=== PATIENT | male | born 1955 | race Caucasian/White ===

== ENCOUNTER 2018-02-21 19:44 | Observation (INO) | payer OTHER ==
--- OUTSIDE RECORDS SUMMARY | 2018-02-21 19:55 | XMS REPORT ---
:1955 External Reference #:[id number] Author Organization [employer] Address [address] [place] [address] [place] [address] Phone [phone] Care Team Providers Name Role Phone Nancy Bedoya MD Primary Care Physician Unavailable Payers Type Date Identification Numbers Payment Provider Subscriber Commercial Policy Number: [id number] [employer] Regine Sapp PayID: [id number] [address] [place] [address] Problems Date Description Provider Status Onset: 08/11/2010 Heart valve replacement Nancy Bedoya M.D. Active Onset: 08/11/2010 Benign essential hypertension Nancy Bedoya M.D. Active Onset: 08/11/2010 Hyperlipidemia Nancy Bedoya M.D. Active Onset: 09/07/2012 Gastroesophageal reflux disease Nancy Bedoya M.D. Active Onset: 11/14/2013 Aortic valve disorder Jyoti Beckford M.D. Active Onset: 11/14/2013 Peripheral vascular disease Jyoti Beckford M.D. Active Onset: 11/14/2013 Thoracic Aortic Ectasia Jyoti Beckford M.D. Active Onset: 04/29/2015 Essential hypertension Jyoti Beckford M.D. Active Onset: 04/29/2015 Aneurysm of thoracic aorta Jyoti Beckford M.D. Active Onset: 04/20/2017 Transient global amnesia Jyoti Beckford M.D. 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 ETOH Use Drinks 1 Alcoholic Beverage Per Day Recreational Drug Use Denies Drug Use Smoking Patient is a former smoker Daily Caffeine Comsumes on average 1 cup of decaff coffee per day Exercise Type/Frequency Exercises regularly Allergies, Adverse Reactions, Alerts Date Description Reaction Status Severity Comments 03/18/2010 No Known Drug Allergy active Medications Medication Date Status Form Strength Qnty SIG Indications Ordering Provider Diltiazem HCL ER 01/11 Active Caps ER 120mg 90cap 1 cap by 24HR s mouth Shakeel, every day M.D. Hydrochlorothiazid 04/22 Active Tablets 25mg 45tab Take s One-Half Cotton, Tablet By M.DIzabela Mouth Every Other Day Alternatin g With Spironolac tone Omeprazole 03/19 Active Capsules 40mg 90cap Take [address] ralph Capsule By Varsilvia, N.P. Mouth Daily Lisinopril Active Tablets 20mg 90tab 1 by mouth s daily Shakeel, MJacob Lovaza Active Capsules 1gm 360ca take 2 ps capsules Cotton, twice a M.D. day (pt takes 2 every day) Vitamin B-12 Active Tablets 500mcg 1 by mouth Unknown every day (pt not taking 04/20/17) Aspirin Active Chewtabs 81mg 1 by mouth every day Spironolactone Active Tablets 25mg 45tab Take s One-Half Cotton, Tablet By M.D. Mouth Every Other Day Tizanidine HCL 12/22 Hx Capsules 2mg 30cap 1-2 tablet M54.31 s every 8 Cotton, - hours as M.D. 04/08 Hydrocodone-Acetam 12/22 Hx Tablets 5-325mg 30tab 1 by mouth M54.31 inophen s three Cotton, - times a M.D. 04/08 day as needed Prednisone 12/22 Hx Tablets 10mg 20tab 4 tabs by M54.31 Nancy s mouth days Cotton, - 1-2; 3 M.D. 04/08 tabs by mouth on days 3-4, 2 tabs by mouth on days 5-6, 1 tab by mouth days 7-8 Valacyclovir HCL 10/14 Hx Tablets 500mg 42tab 2 tablets B02.9 Douglas s by mouth Татьяна [employer]ING OFFIC[employer] - three 10/20 times a day for 7 days Amoxicillin 11/13 Hx Capsules 500mg 20cap one tablet 461.8 Douglas s two times EPI Vaz - a day for 11/23 Tamiflu 11/01 Hx Capsules 75mg 10cap 1 by mouth 465.9 s twice a Varn, N.P. - day x 5 Guaifenesin-Codein 11/01 Hx Solution 100-10mg/ 120cc 1 - 2 465.9 5ML teaspoon Varn, N.P. - every 4 01/14 hours needed cough Cyclobenzaprine 03/12 Hx Tablets 10mg 30tab 1 tablet 724.2 Nancy HCL s PO QHS, Aureliano, - you can M.D. 03/16 also this every 8 hours in the daytime Hydrocodone/Acetam 03/12 Hx Tablets 5-500mg 40tab 1 every 4 724.2 Nancy inophen s hours as Aureliano, - needed for M.D. 03/27 pain Diltiazem CD 01/03 Hx Caps ER 120mg 90cap 1 cap by Jyoti 24HR s mouth [place], - every day M.D. 01/11 Dilt-XR 12/06 Hx Caps ER 120mg 30cap One po Jyoti 24HR s daily [place], - M.D. 01/03 Dilt-XR 11/07 Hx Caps ER 180mg 90cap 1 tab by Jyoti 24HR s mouth [place], - every day M.D. 12/06 Keflex 08/05 Hx Capsules 500mg 21cap one by s mouth 3 Cotton, - times M.D. 08/12 daily 7 days Amoxicillin 05/11 Hx Capsules 500mg 4caps 4 tablets Nancy one hour Cotton, - prior to M.D. 05/28 Amoxil Hx Capsules 500mg 4caps 4 tablets Nancy /0000 one hour Cotton, - prior to M.D. 05/11 procedure Prilosec Hx Capsules 20mg 60cap 1 by mouth 530.81 Hao, DR loree Ricardo MD - daily 03/19 HCTZ Hx 25mg. 45uni /2 Tablet Nancy /0000 ts By Mouth Cotton, - Daily M.D. 05/28 Ramipril Hx Capsules 10mg 90cap 1 by mouth Nancy / s daily Cotton, - M.D. 08/05 Lisinopril Hx Tablets 40mg 90tab 1 by mouth Unknown /0000 s once daily - 05/28 Diltiazem HCL ER Hx Caps ER 240mg 90cap Take 1 Nancy /0000 24HR s Capsule Cotton, - Daily M.D. 03/12 Tizanidine HCL Hx Tablets 2 tab Unknown /0000 every - night prn 09/10 Prednisone Hx Tablets 10mg 30tab 5 tabs PO Nancy /0000 s on day 1, Aureliano, - then M.D. 03/27 reduce 1 tablet daily until gone Naproxen Hx Tablets 500mg 60tab 1 po bid Unknown /0000 s prn - 09/10 Ibuprofen 200 Hx Tablets 200mg 400-600mg Unknown /0000 every 6 - hours as 12/28 needed for /2018 pain. Medications Administered in Office Medication Date Status Form Strength Qnty SIG Indications Ordering Provider Sharynomedpatricia Administered Injection Dirdarrick Santoyo, 40MG 018 M.D. Immunizations CPT Code Status Date Vaccine Lot # [id number] Given 09/07/2012 Tdap - Tetanus/Diptheria/Acellular Pertussis [id number] Given 08/11/2009 Influenza Virus Vaccine, Pandemic Formulation [id number] Given 08/11/2009 Administration Swine Flu Shot [id number] Given 05/05/2009 Influenza Virus 3Yrs & Over [id number] Given 05/15/2007 Influenza Virus 3Yrs & Over 94928 Given 06/15/2006 Influenza Virus 3Yrs & Over Vital Signs Date Vital Result Comment 01/23/2018 Height 68 inches 5'8" Weight 194.00 lb Heart Rate 80 /min BP Systolic Sitting 122 mmHg BP Diastolic Sitting 76 mmHg Respiratory Rate 16 /min Pain Level 3 BMI (Body Mass Index) 29.5 kg/m2 12/28/2017 Height 68 inches 5'8" Weight 194.00 lb Heart Rate 66 /min BP Systolic Sitting 128 mmHg BP Diastolic Sitting 78 mmHg Respiratory Rate 16 /min Body Temperature 97.8 F Pain Level 4 BMI (Body Mass Index) 29.5 kg/m2 12/14/2017 Height 68 inches 5'8" Weight 194.00 lb BP Systolic 118 mmHg BP Diastolic 70 mmHg Respiratory Rate 18 /min Body Temperature 98.1 F Pain Level 5 BMI (Body Mass Index) 29.5 kg/m2 07/22/2017 Height 68 inches 5'8" Weight 194.00 lb Heart Rate 78 /min Respiratory Rate 16 /min Body Temperature 97.7 F Pain Level 0 BMI (Body Mass Index) 29.5 kg/m2 05/26/2017 Height 68 inches 5'8" Weight 194.00 lb BP Systolic 120 mmHg BP Diastolic 70 mmHg Respiratory Rate 18 /min Pain Level 0 BMI (Body Mass Index) 29.5 kg/m2 05/12/2017 Height 69 inches 5'9" Weight 194.50 lb Heart Rate 90 /min BP Systolic 120 mmHg BP Diastolic 76 mmHg Body Temperature 97.2 F O2 % BldC Oximetry 98 % BMI (Body Mass Index) 28.7 kg/m2 05/02/2017 Weight 196.00 lb Heart Rate 77 /min BP Systolic 120 mmHg BP Diastolic 78 mmHg Body Temperature 97.4 F O2 % BldC Oximetry 98 % 04/20/2017 Height 68 inches 5'8" Weight 195.00 lb with shoes Heart Rate 74 /min BP Systolic Sitting 124 mmHg Lue reg cuff BP Diastolic Sitting 86 mmHg Lue reg cuff BP Systolic Standing 120 mmHg Lue reg cuff BP Diastolic Standing 72 mmHg Lue reg cuff Respiratory Rate 16 /min BMI (Body Mass Index) 29.6 kg/m2 Ejection Fraction 50-55% 03/17/2017-echo 03/24/2017 Height 68 inches 5'8" Weight 194.00 lb BP Systolic 118 mmHg BP Diastolic 78 mmHg Respiratory Rate 20 /min Body Temperature 97.0 F Pain Level 2 BMI (Body Mass Index) 29.5 kg/m2 03/07/2017 Height 68 inches 5'8" Weight 194.38 lb Heart Rate 80 /min BP Systolic 120 mmHg BP Diastolic 70 mmHg Body Temperature 97.7 F O2 % BldC Oximetry 98 % BMI (Body Mass Index) 29.6 kg/m2 12/14/2016 Height 68 inches 5'8" Weight 194.50 lb Heart Rate 68 /min BP Systolic Sitting 120 mmHg BP Diastolic Sitting 80 mmHg Respiratory Rate 16 /min Body Temperature 98.0 F O2 % BldC Oximetry 98 % BMI (Body Mass Index) 29.6 kg/m2 Waist Circumference 100 04/29/2016 Height 67.75 inches 5'7.75" Weight 189.50 lb Heart Rate 72 /min BP Systolic Sitting 112 mmHg Ra reg cuff BP Diastolic Sitting 76 mmHg Ra reg cuff BP Systolic Standing 112 mmHg Ra reg cuff BP Diastolic Standing 78 mmHg Ra reg cuff Respiratory Rate 16 /min BMI (Body Mass Index) 29.0 kg/m2 Ejection Fraction 50-55% 04/15/2015 04/08/2016 Weight 193.00 lb Heart Rate 74 /min BP Systolic Sitting 114 mmHg BP Diastolic Sitting 80 mmHg O2 % BldC Oximetry 98 % 12/23/2015 Height 68.5 inches 5'8.50" Weight 195.00 lb Heart Rate 76 /min BP Systolic Sitting 128 mmHg BP Diastolic Sitting 80 mmHg Respiratory Rate 15 /min Body Temperature 98.1 F O2 % BldC Oximetry 98 % BMI (Body Mass Index) 29.2 kg/m2 12/10/2015 Height 68.5 inches 5'8.50" Weight 191.00 lb Heart Rate 78 /min BP Systolic Sitting 125 mmHg BP Diastolic Sitting 80 mmHg O2 % BldC Oximetry 98 % BMI (Body Mass Index) 28.6 kg/m2 10/15/2015 Weight 195.75 lb Heart Rate 73 /min BP Systolic Sitting 119 mmHg BP Diastolic Sitting 76 mmHg Body Temperature 98.3 F O2 % BldC Oximetry 98 % 04/29/2015 Height 68.5 inches 5'8.50" Weight 186.50 lb w/o shoes Heart Rate 64 /min reg BP Systolic Standing 130 mmHg Rue, reg cuff BP Diastolic Standing 90 mmHg Rue, reg cuff BP Systolic Lying Down 122 mmHg Rue BP Diastolic Lying Down 90 mmHg Rue Respiratory Rate 18 /min BMI (Body Mass Index) 27.9 kg/m2 Ejection Fraction 50-55% as of 04/15/15 echo 11/13/2014 Weight 197.00 lb Heart Rate 84 /min BP Systolic Sitting 114 mmHg BP Diastolic Sitting 72 mmHg Body Temperature 98.4 F 11/01/2014 Weight 197.00 lb Heart Rate 105 /min BP Systolic Sitting 124 mmHg BP Diastolic Sitting 82 mmHg Body Temperature 100.9 F O2 % BldC Oximetry 98 % 09/12/2014 Height 68.25 inches 5'8.25" Weight 192.19 lb Heart Rate 72 /min BP Systolic Sitting 132 mmHg BP Diastolic Sitting 80 mmHg BMI (Body Mass Index) 29.0 kg/m2 11/14/2013 Height 69 inches 5'9" Weight 196.00 lb without shoes Heart Rate 70 /min 78 sit and stand HR reg BP Systolic Sitting 122 mmHg LA reg cuff BP Diastolic Sitting 90 mmHg LA reg cuff BP Systolic Standing 124 mmHg LA reg cuff BP Diastolic Standing 90 mmHg LA reg cuff Respiratory Rate 17 /min BMI (Body Mass Index) 28.9 kg/m2 09/10/2013 Height 70 inches 5'10" Weight 204.00 lb Heart Rate 80 /min BP Systolic Sitting 128 mmHg BP Diastolic Sitting 86 mmHg BMI (Body Mass Index) 29.3 kg/m2 03/27/2013 Weight 198.00 lb Heart Rate 74 /min BP Systolic Sitting 122 mmHg BP Diastolic Sitting 78 mmHg 03/16/2013 Weight 200.50 lb Heart Rate 70 /min BP Systolic Sitting 120 mmHg BP Diastolic Sitting 88 mmHg 03/12/2013 Weight 201.00 lb Heart Rate 76 /min BP Systolic Sitting 132 mmHg BP Diastolic Sitting 86 mmHg 09/07/2012 Height 69.5 inches 5'9.50" Weight 201.00 lb Heart Rate 78 /min BP Systolic Sitting 134 mmHg recheck 118/72, 114/80 BP Diastolic Sitting 82 mmHg recheck 118/72, 114/80 BMI (Body Mass Index) 29.3 kg/m2 05/15/2012 Height 69.5 inches 5'9.50" Weight 203.00 lb Heart Rate 76 /min BP Systolic Sitting 122 mmHg BP Diastolic Sitting 86 mmHg BMI (Body Mass Index) 29.5 kg/m2 02/03/2012 Weight 197.00 lb Heart Rate 80 /min BP Systolic 112 mmHg BP Diastolic 70 mmHg 05/28/2011 Height 69 inches 5'9" Weight 195.00 lb Heart Rate 72 /min BP Systolic Sitting 128 mmHg BP Diastolic Sitting 84 mmHg BMI (Body Mass Index) 28.8 kg/m2 08/05/2010 Weight 196.00 lb Heart Rate 78 /min BP Systolic 102 mmHg BP Diastolic 78 mmHg Body Temperature 97.6 F 03/19/2010 Weight 198.00 lb Heart Rate 64 /min BP Systolic 132 mmHg BP Diastolic 92 mmHg Results Test Date Test Result H/L Range Note Basic Metabolic Panel 05/02/2017 Sodium 139 mmol/L 133-145 Potassium 3.8 mmol/L 3.5-5.0 Chloride 102 mmol/L 101-111 Co2 Carbon Dioxide 31 mmol/L 22-32 Anion Gap 6 mmol/L 2-11 Glucose 103 mg/dL High 70-100 Blood Urea Nitrogen 16 mg/dL 6-24 Creatinine 0.93 mg/dL 0.67-1.17 BUN/Creatinine Ratio 17.2 8-20 Calcium 9.6 mg/dL 8.6-10.3 Egfr Non- 82.6 >60 Egfr 106.2 >60 1 Laboratory test 05/02/2017 TSH (Thyroid Stim Horm) 2.51 mcIU/mL 0.34- 5.60 finding Laboratory test 05/02/2017 Stool Culture SEE RESULT BELOW 2 finding Lipid Profile 12/06/2016 Triglycerides 228 mg/dL 3 (Trig/Chol/HDL) Cholesterol 170 mg/dL 4 HDL Cholesterol 32.8 mg/dL 5 LDL Cholesterol 92 mg/dL 6 Comp Metabolic Panel 12/06/2016 Sodium 141 mmol/L 133-145 Potassium 3.8 mmol/L 3.5-5.0 Chloride 104 mmol/L 101-111 Co2 Carbon Dioxide 31 mmol/L 22-32 Anion Gap 6 mmol/L 2-11 Glucose 99 mg/dL 70-100 Blood Urea Nitrogen 18 mg/dL 6-24 Creatinine 1.00 mg/dL 0.67-1.17 BUN/Creatinine Ratio 18.0 8-20 Calcium 9.5 mg/dL 8.6-10.3 Total Protein 6.5 g/dL 6.4-8.9 Albumin 4.0 g/dL 3.2-5.2 Globulin 2.5 g/dL 2-4 Albumin/Globulin Ratio 1.6 1-3 Total Bilirubin 0.50 mg/dL 0.2-1.0 Alkaline Phosphatase 46 U/L 34-104 Alt 19 U/L 7-52 Ast 18 U/L 13-39 Egfr Non- 76.0 >60 Egfr 97.7 >60 7 Lipid Profile (Trig/Chol/HDL) 12/03/2015 Triglycerides 358 mg/dL 8, 9 Cholesterol 177 mg/dL 8, 10 HDL Cholesterol 34.3 mg/dL 8, 11 LDL Cholesterol 71 mg/dL 8, 12 Comp Metabolic Panel 12/03/2015 Sodium 138 mmol/L 133-145 8 Potassium 4.3 mmol/L 3.5-5.0 8 Chloride 100 mmol/L Low 101-111 8 Co2 Carbon Dioxide 31 mmol/L 22-32 8 Anion Gap 7 mmol/L 2-11 8 Glucose 101 mg/dL High 70-100 8 Blood Urea Nitrogen 18 mg/dL 6-24 8 Creatinine 1.05 mg/dL 0.67-1.17 8 BUN/Creatinine Ratio 17.1 8-20 8 Calcium 9.7 mg/dL 8.6-10.3 8 Total Protein 7.0 g/dL 6.4-8.9 8 Albumin 4.4 g/dL 3.2-5.2 8 Globulin 2.6 g/dL 2-4 8 Albumin/Globulin Ratio 1.7 1-3 8 Total Bilirubin 0.50 mg/dL 0.2-1.0 8 Alkaline Phosphatase 49 U/L 34-104 8 Alt 19 U/L 7-52 8 Ast 19 U/L 13-39 8 Egfr Non- 72.0 >60 8 Egfr 92.7 >60 8, 13 Laboratory test finding 12/03/2015 Vitamin B12 389 pg/mL 180-914 8, 14 Magnesium 2.1 mg/dL 1.9-2.7 8, 15 Laboratory test finding 05/06/2015 Clotest SEE RESULT BELOW 16 Laboratory test finding 09/05/2014 Vitamin B12 256 pg/mL 180-914 17, 18 Hepatitis C Antibody Nonreactive Nonreactive 17, 19 Comp Metabolic Panel 09/05/2014 Sodium 139 mmol/L 133-145 17 Potassium 4.1 mmol/L 3.5-5.0 17 Chloride 102 mmol/L 101-111 17 Co2 Carbon Dioxide 30 mmol/L 22-32 17 Anion Gap 7 mmol/L 2-11 17 Glucose 101 mg/dL High 70-100 17 Blood Urea Nitrogen 18 mg/dL 6-24 17 Creatinine 1.10 mg/dL 0.67-1.17 17 BUN/Creatinine Ratio 16.4 8-20 17 Calcium 10.1 mg/dL 8.6-10.3 17 Total Protein 7.0 g/dL 6.4-8.9 17 Albumin 4.6 g/dL 3.2-5.2 17 Globulin 2.4 g/dL 2-4 17 Albumin/Globulin Ratio 1.9 1-3 17 Total Bilirubin 0.60 mg/dL 0.2-1.0 17 Alkaline Phosphatase 49 U/L 34-104 17 Alt 30 U/L 7-52 17 Ast 20 U/L 13-39 17 Egfr Non- 68.5 >60 17 Egfr 88.1 >60 17, 20 Lipid Profile (Trig/Chol/HDL) 09/05/2014 Triglycerides 265 mg/dL 17, 21 Cholesterol 170 mg/dL 17, 22 HDL Cholesterol 33.6 mg/dL 17, 23 LDL Cholesterol 83 mg/dL 17, 24 CBC Auto Diff 08/31/2013 White Blood Count 6.7 10^3/uL 4.8-10.8 Red Blood Count 5.35 10^6/uL 4.0-5.4 Hemoglobin 14.3 g/dL 14.0-18.0 Hematocrit 43 % 42-52 Mean Corpuscular Volume 81 fL 80-94 Mean Corpuscular Hemoglobin 27 pg 27-31 Mean Corpuscular HGB Conc 33 g/dL 31-36 Red Cell Distribution Width 14 % 10.5-15 Platelet Count 273 10^3/uL 150-450 Mean Platelet Volume 9 um3 7.4-10.4 Abs Neutrophils 3.8 10^3/uL 1.5-7.7 Abs Lymphocytes 2.4 10^3/uL 1.0-4.8 Abs Monocytes 0.4 10^3/uL 0-0.8 Abs Eosinophils 0.1 10^3/uL 0-0.6 Abs Basophils 0 10^3/uL 0-0.2 Abs Nucleated RBC 0.01 10^3/uL Granulocyte % 55.7 % 38-83 Lymphocyte % 35.6 % 25-47 Monocyte % 6.6 % 1-9 Eosinophil % 1.9 % 0-6 Basophil % 0.2 % 0-2 Nucleated Red Blood Cells % 0.2 Comp Metabolic Panel 08/31/2013 Sodium 138 mmol/L 133-145 Potassium 4.0 mmol/L 3.5-5.0 Chloride 102 mmol/L 101-111 Co2 Carbon Dioxide 30.0 mmol/L 22-32 Anion Gap 6.0 mmol/L 2-11 Glucose 99 mg/dL 70-100 Blood Urea Nitrogen 23 mg/dL 6-24 Creatinine 1.10 mg/dL 0.50-1.40 BUN/Creatinine Ratio 20.9 High 8-20 Calcium 9.6 mg/dL 8.1-9.9 Total Protein 6.0 g/dL Low 6.2-8.1 Albumin 4.0 g/dL 3.6-5.4 Globulin 2.0 g/dL 2-4 Albumin/Globulin Ratio 2.0 1-3 Total Bilirubin 0.7 mg/dL 0.4-1.5 Alkaline Phosphatase 52 U/L 30-110 Alt 29 U/L 14-54 Ast 22 U/L 12-42 Egfr Non- 68.8 >60 Egfr 88.4 >60 25 Lipid Profile (Trig/Chol/HDL) 08/31/2013 Triglycerides 235 mg/dL High 40- 200 Cholesterol 151 mg/dL Less than 200 HDL Cholesterol 35 mg/dL Low 40-60 26 Cholesterol/HDL Ratio 4.3 Average 1-4.44 LDL Cholesterol 69.0 Less Than 100 27 Laboratory test finding 09/01/2012 Hemoglobin A1c 5.6 % Less than 6.0 28 Comp Metabolic Panel 09/01/2012 Sodium 138 mmol/L 133-145 Potassium 4.1 mmol/L 3.5-5.0 Chloride 101 mmol/L 101-111 Co2 Carbon Dioxide 29.0 mmol/L 22-32 Anion Gap 8.0 mmol/L 2-11 Glucose 92 mg/dL 70-100 Blood Urea Nitrogen 15 mg/dL 6-24 Creatinine 1.10 mg/dL 0.50-1.40 BUN/Creatinine Ratio 13.6 8-20 Calcium 9.8 mg/dL 8.1-9.9 Total Protein 6.5 g/dL 6.2-8.1 Albumin 3.9 g/dL 3.6-5.4 Globulin 2.6 g/dL 2-4 Albumin/Globulin Ratio 1.5 1-3 Total Bilirubin 0.9 mg/dL 0.4-1.5 Alkaline Phosphatase 47 U/L 30-110 Alt 29 U/L 14-54 Ast 25 U/L 12-42 Egfr Non- 69.0 >60 Egfr 88.7 >60 29 Lipid Profile (Trig/Chol/HDL) 09/01/2012 Triglycerides 234 mg/dL High 40- 200 Cholesterol 179 mg/dL Less than 200 HDL Cholesterol 37 mg/dL Low 40-60 30 Cholesterol/HDL Ratio 4.8 Average High 1-4.44 LDL Cholesterol 95.2 mg/dL Less Than 100 31 Lipid Profile (Trig/Chol/HDL) 10/22/2011 Triglyceride 224 mg/dL High 40- 200 Cholesterol 167 mg/dL Less Than 200 32 High Density Lipoprotein 36 mg/dL Low 40-60 33 Cholesterol/HDL Ratio 4.64 AVERAGE 1-4.97 Low Density Lipoprotein 86 mg/dL Less Than 100 34 Comp Metabolic Panel 10/22/2011 Sodium 139 mmol/L 135-145 Potassium 4.3 mmol/L 3.5-5.0 Chloride 105 mmol/L 101-111 Co2 (Carbon Dioxide) 27.0 mmol/L 22-32 Anion Gap 7.0 mmol/L 2-11 35 Glucose 99 mg/dL 70-100 BUN 17 mg/dL 6-24 Creatinine 1.0 mg/dL 0.50-1.40 One Over Creatinine 1.00 BUN/Creatinine Ratio 17.0 8-20 Calcium 9.5 mg/dL 8.1-9.9 Total Protein 6.7 GM/DL 6.2-8.1 Albumin 4.0 GM/DL 3.6-5.4 Globulin 2.7 GM/DL 2-4 Albumin/Globulin Ratio 1.5 1-3 Bilirubin Total 1.1 mg/dL 0.4-1.5 36 Alkaline Phosphatase 47 U/L 39-117 Alt (SGPT) 29 U/L 17-63 Ast (Sgot) 23 U/L 12-42 eGFR Non- 77.3 > 60 eGFR 99.4 > 60 37 Comp Metabolic Panel 05/24/2011 Sodium 141 mmol/L 135-145 Potassium 4.0 mmol/L 3.5-5.0 Chloride 105 mmol/L 101-111 Co2 (Carbon Dioxide) 29.0 mmol/L 22-32 Anion Gap 7.0 mmol/L 2-11 38 Glucose 103 mg/dL High 70-100 BUN 22 mg/dL 6-24 Creatinine 1.2 mg/dL 0.50-1.40 One Over Creatinine 0.83 BUN/Creatinine Ratio 18.3 8-20 Calcium 9.5 mg/dL 8.1-9.9 Total Protein 6.0 GM/DL Low 6.2-8.1 Albumin 3.9 GM/DL 3.6-5.4 Globulin 2.1 GM/DL 2-4 Albumin/Globulin Ratio 1.9 1-3 Bilirubin Total 0.8 mg/dL 0.4-1.5 39 Alkaline Phosphatase 50 U/L 39-117 Alt (SGPT) 29 U/L 17-63 Ast (Sgot) 24 U/L 12-42 eGFR Non- 62.6 > 60 eGFR 80.5 > 60 40 Lipid Profile (Trig/Chol/HDL) 05/24/2011 Triglyceride 264 mg/dL High 40- 200 Cholesterol 170 mg/dL Less Than 200 41 High Density Lipoprotein 34 mg/dL Low 40-60 42 Cholesterol/HDL Ratio 5.00 AVERAGE High 1-4.97 Low Density Lipoprotein 83 mg/dL Less Than 100 43 Laboratory test finding 05/24/2011 Hemoglobin A1c 5.5 % Less Than 6.0 44 Comp Metabolic Panel 08/24/2010 Sodium 136 mmol/L 135-145 Potassium 4.5 mmol/L 3.5-5.0 Chloride 100 mmol/L Low 101-111 Co2 (Carbon Dioxide) 30.0 mmol/L 22-32 Anion Gap 6.0 mmol/L 2-11 45 Glucose 107 mg/dL High 70-100 BUN 20 mg/dL 6-24 Creatinine 1.10 mg/dL 0.50-1.40 One Over Creatinine 0.90 BUN/Creatinine Ratio 18.2 8-20 Calcium 9.8 mg/dL 8.1-9.9 Total Protein 6.5 GM/DL 6.2-8.1 Albumin 4.0 GM/DL 3.6-5.4 Globulin 2.5 GM/DL 2-4 Albumin/Globulin Ratio 1.6 1-3 Bilirubin Total 0.7 mg/dL 0.4-1.5 46 Alkaline Phosphatase 43 U/L 39-117 Alt (SGPT) 22 U/L 17-63 Ast (Sgot) 20 U/L 12-42 eGFR Non- 73.9 > 60 eGFR 89.4 > 60 47 Lipid Profile (Trig/Chol/HDL) 08/24/2010 Triglyceride 283 mg/dL High 40- 200 Cholesterol 182 mg/dL Less Than 200 48 High Density Lipoprotein 29 mg/dL Low 40-60 49 Cholesterol/HDL Ratio 6.28 AVERAGE High 1-4.97 Low Density Lipoprotein 96 mg/dL Less Than 100 50 Basic Metabolic Panel 08/10/2010 Sodium 138 mmol/L 135-145 Potassium 3.9 mmol/L 3.5-5.0 Chloride 100 mmol/L Low 101-111 Co2 (Carbon Dioxide) 32.0 mmol/L 22-32 Anion Gap 6.0 mmol/L 2-11 51 Glucose 120 mg/dL High 70-100 BUN 18 mg/dL 6-24 Creatinine 1.00 mg/dL 0.50-1.40 One Over Creatinine 1.00 BUN/Creatinine Ratio 18.0 8-20 Calcium 9.5 mg/dL 8.1-9.9 eGFR Non- 82.5 > 60 eGFR 99.8 > 60 52 1 Because ethnic data is not always readily available, this report includes an eGFR for both -Americans and non- Americans. The National Kidney Disease Education Program (NKDEP) does not endorse the use of the MDRD equation for patients that are not between the ages of 18 and 70, are , have extremes of body size, muscle mass, or nutritional status, or are non- or non-. According to the National Kidney Foundation, irrespective of diagnosis, the stage of the disease is based on the level of kidney function: Stage Description GFR(mL/min/1.73 m(2)) 1 Kidney damage with normal or decreased GFR 90 2 Kidney damage with mild decrease in GFR 60-89 3 Moderate decrease in GFR 30-59 4 Severe decrease in GFR 15-29 5 Kidney failure <15 (or dialysis) 2 SEE RESULT BELOW Name: REGINE SAPP : [address]: Narcisa Azevedo NP Acct: [id number] Unit: [id number] AGE: 62 Location: [facility] Re05/05/17 SEX: M Status: REG REF SPEC: [id number] MARLEEN: 05/02/17-[address]: Narcisa Azevedo NP REQ: [id number] RECD: 05/05/17 STATUS: COMP _ SOURCE: STOOL SPDESC: ORDERED: Stool Culture, O P: [place] COMMENTS: NO PLAIN CUP RECEIVED Procedure Result Reported Site Stool Culture Final 05/07/17- 1319 ML Result No enteric pathogens isolated Testing for Salmonella, Shigella, Aeromonas, Plesiomonas, Yersinia and Campylobacter are included in a Stool Culture. Vibrio spp not routinely tested for in a stool culture. If testing is desired, please request specifically when placing test order. Sensitivities not routinely performed on stool isolates, as antibiotics may prolong the carriage rate of bacteria. Please contact the microbiology lab if sensitivities are required. Stool Specimen Description Final 05/05/17- 1440 ML Test not performed Shiga Toxin 1 2 Final 05/06/17- 1153 ML Organism 1 Negative Shiga Toxin 1 2 Immunochromatographic Assay O P: Giardia/Cryptospor Screen Final 05/05/17- 1542 ML Organism 1 Neg Cryptosporidium/Giardia CONTINUED ON NEXT PAGE * ML=Testing performed at Main Lab DEPARTMENT OF PATHOLOGY, [address] [place] [address] Willard Zhu M.D. Director [facility] # [id number] Patient: SAPPREGINE R [id number] (Continued) Specimen: [id number] Collected: 05/02/17-1015 Received: 05/05/17-1002 (Continued) Procedure Result Reported Site O P: Giardia/Cryptospor Screen Final (continued) 05/05/17- 1542 Giardia and cryptosporidium antigen testing performed by enzyme immunoassay. If patient is immunocompromised or has traveled to or is from a developing country, a full ova and parasite exam with microscopic (OPMIC) is recommended. All samples will be held one month in case full ova and parasite testing is requested. Contact the Microbiology Department at [phone]. TEST LIMITATIONS: As with all diagnostic procedures, the results obtained should be used in conjunction with other clinical information available the physician, including confirmation by another method. Negative results can occur in samples containing antigen below lower limits of detection of the assay. One negative specimen does not rule out the possibility of a parasitic infection. To improve detection it is recommended that three specimens be collected on separate days over a period of not more than seven days. The use of colonic washes, aspirates or other diluted sample types has not been established and could affect the performance of the assay. Stool samples contaminated with an oily or particulate base (eg. Barium, mineral oil etc.) could interfere with the test and are not recommended. * ML - MAIN LAB ([facility]) . END OF REPORT * ML=Testing performed at Main Lab DEPARTMENT OF PATHOLOGY, [address] [place] [address] Willard Zhu M.D. Director [facility] # [id number] 3 Desirable <150 Borderline high 150-199 High 200-499 Very High >500 4 Desirable <200 Borderline high 200-239 High >239 5 Low <40 Desirable: 40-60 High: >60 6 Desirable: <100 mg/dL Near Optimal: 100-129 mg/dL Borderline High: 130-159 mg/dL High: 160-189 mg/dL Very High: >189 mg/dL 7 Because ethnic data is not always readily available, this report includes an eGFR for both -Americans and non- Americans. The National Kidney Disease Education Program (NKDEP) does not endorse the use of the MDRD equation for patients that are not between the ages of 18 and 70, are , have extremes of body size, muscle mass, or nutritional status, or are non- or non-. According to the National Kidney Foundation, irrespective of diagnosis, the stage of the disease is based on the level of kidney function: Stage Description GFR(mL/min/1.73 m(2)) 1 Kidney damage with normal or decreased GFR 90 2 Kidney damage with mild decrease in GFR 60-89 3 Moderate decrease in GFR 30-59 4 Severe decrease in GFR 15-29 5 Kidney failure <15 (or dialysis) 8 [id number] Desirable <150 Borderline high 150-199 High 200-499 Very High >500 10 Desirable <200 Borderline high 200-239 High >239 11 Low <40 Desirable: 40-60 High: >60 12 Desirable: <100 mg/dL Near Optimal: 100-129 mg/dL Borderline High: 130-159 mg/dL High: 160-189 mg/dL Very High: >189 mg/dL 13 Because ethnic data is not always readily available, this report includes an eGFR for both -Americans and non- Americans. The National Kidney Disease Education Program (NKDEP) does not endorse the use of the MDRD equation for patients that are not between the ages of 18 and 70, are , have extremes of body size, muscle mass, or nutritional status, or are non- or non-. According to the National Kidney Foundation, irrespective of diagnosis, the stage of the disease is based on the level of kidney function: Stage Description GFR(mL/min/1.73 m(2)) 1 Kidney damage with normal or decreased GFR 90 2 Kidney damage with mild decrease in GFR 60-89 3 Moderate decrease in GFR 30-59 4 Severe decrease in GFR 15-29 5 Kidney failure <15 (or dialysis) 14 Normal Range 180 to 914 Indeterminate Range 145 to 180 Deficient Range <145 15 [id number] SEE RESULT BELOW Name: REGINE SAPP : [address]: Davion Bui MD Acct: [id number] Unit: [id number] AGE: 60 Location: ENDO Re05/06/15 SEX: M Status: REG REF SPEC: [id number] MARLEEN: 05/06/[address] [facility] [address]: Davion Bui MD REQ: [id number] RECD: 05/06/15 STATUS: PRASHANTH BURROUGHS DR: Nancy Beckford MD _ SOURCE: GAS ANTRUM SPDESC: ORDERED: Clotest Procedure Result Verified Site Clotest Final 05/07/15- 727 ML Clotest Negative * ML - MAIN LAB ([facility]) . END OF REPORT * ML=Testing performed at Main Lab DEPARTMENT OF PATHOLOGY, [address] [place] [address] Willard Zhu M.D. Director [facility] # [id number] 17 FASTING 10 HOUR 18 Normal Range 180 to 914 Indeterminate Range 145 to 180 Deficient Range <145 19 FASTING 10 HOUR 20 Because ethnic data is not always readily available, this report includes an eGFR for both -Americans and non- Americans. The National Kidney Disease Education Program (NKDEP) does not endorse the use of the MDRD equation for patients that are not between the ages of 18 and 70, are , have extremes of body size, muscle mass, or nutritional status, or are non- or non-. According to the National Kidney Foundation, irrespective of diagnosis, the stage of the disease is based on the level of kidney function: Stage Description GFR(mL/min/1.73 m(2)) 1 Kidney damage with normal or decreased GFR 90 2 Kidney damage with mild decrease in GFR 60-89 3 Moderate decrease in GFR 30-59 4 Severe decrease in GFR 15-29 5 Kidney failure <15 (or dialysis) 21 Desirable <150 Borderline high 150-199 High 200-499 Very High >500 22 Desirable <200 Borderline high 200-239 High >239 23 Low <40 Desirable: 40-60 High: >60 24 Desirable <100 Near Optimal 100-129 Borderline high 130-159 High 160-189 Very High >189 25 Because ethnic data is not always readily available, this report includes an eGFR for both -Americans and non- Americans. The National Kidney Disease Education Program (NKDEP) does not endorse the use of the MDRD equation for patients that are not between the ages of 18 and 70, are , have extremes of body size, muscle mass, or nutritional status, or are non- or non-. According to the National Kidney Foundation, irrespective of diagnosis, the stage of the disease is based on the level of kidney function: Stage Description GFR(mL/min/1.73 m(2)) 1 Kidney damage with normal or decreased GFR 90 2 Kidney damage with mild decrease in GFR 60-89 3 Moderate decrease in GFR 30-59 4 Severe decrease in GFR 15-29 5 Kidney failure <15 (or dialysis) 26 HDL Interpretation: Undesirable: High Risk: Less than 40 mg/dL Desirable: Low Risk: Greater than 60 mg/dL 27 LDL Interpretation: Low Risk Optimal Level: LDL Less than 100 mg/dL Near or Above Optimal: LDL 100-129 mg/dL Borderline High Risk: LDL 130-159 mg/dL High Risk: LDL 160-189 mg/dL Very High Risk: LDL Greater than 189 mg/dL 28 Therapeutic target for the treatment of diabetes Mellitus patients is <7% HBA1C, and in selective patients <6.0%.Please refer to [place] [employer] Diabetic care guidelines for further information. 29 Because ethnic data is not always readily available, this report includes an eGFR for both -Americans and non- Americans. The National Kidney Disease Education Program (NKDEP) does not endorse the use of the MDRD equation for patients that are not between the ages of 18 and 70, are , have extremes of body size, muscle mass, or nutritional status, or are non- or non-. According to the National Kidney Foundation, irrespective of diagnosis, the stage of the disease is based on the level of kidney function: Stage Description GFR(mL/min/1.73 m(2)) 1 Kidney damage with normal or decreased GFR 90 2 Kidney damage with mild decrease in GFR 60-89 3 Moderate decrease in GFR 30-59 4 Severe decrease in GFR 15-29 5 Kidney failure <15 (or dialysis) 30 HDL Interpretation: Undesirable: High Risk: Less than 40 MG/DL Desirable: Low Risk: Greater than 60 MG/DL 31 LDL Interpretation: Low Risk Optimal Level: LDL Less than 100 MG/DL Near or Above Optimal: LDL 100-129 MG/DL Borderline High Risk: LDL 130-159 MG/DL High Risk: LDL 160-189 MG/DL Very High Risk: LDL Greater than 189 MG/DL 32 CHOLESTEROL INTERPRETATION: Desirable: Less than 200 MG/DL Borderline-High Risk: 200-239 MG/DL High-Risk: 240 MG/DL and over 33 HDL INTERPRETATION: Undesirable: High Risk: Less than 40 MG/DL Desirable: Low Risk: Greater than 60 MG/DL 34 LDL INTERPRETATION: Low Risk Optimal Level: LDL Less than 100 MG/DL Near or Above Optimal: LDL 100-129 MG/DL Borderline High Risk: LDL 130-159 MG/DL High Risk: LDL 160-189 MG/DL Very High Risk: LDL Greater than 189 MG/DL 35 Anion gap measurement may be of limited value in the presence of any alkalosis, especially in a combined acid base disorder. . 36 A metabolite of Naproxen, O-desmethylnaproxen, has been shown to interfere with the [place]rass[place] method for measuring total bilirubin. Samples from patients who have taken Naproxen have shown spurious elevation in total bilirubin levels. 37 Because ethnic data is not always readily available, this report includes an eGFR for both -Americans and non- Americans. The National Kidney Disease Education Program (NKDEP) does not endorse the use of the MDRD equation for patients that are not between the ages of 18 and 70, are , have extremes of body size, muscle mass, or nutritional status, or are non- or non-. According to the National Kidney Foundation, irrespective of diagnosis, the stage of the disease is based on the level of kidney function: Stage Description GFR(mL/min/1.73 m(2)) 1 Kidney damage with normal or decreased GFR 90 2 Kidney damage with mild decrease in GFR 60-89 3 Moderate decrease in GFR 30-59 4 Severe decrease in GFR 15-29 5 Kidney failure <15 (or dialysis) 38 Anion gap measurement may be of limited value in the presence of any alkalosis, especially in a combined acid base disorder. . 39 A metabolite of Naproxen, O-desmethylnaproxen, has been shown to interfere with the Jendrassik-[place] method for measuring total bilirubin. Samples from patients who have taken Naproxen have shown spurious elevation in total bilirubin levels. 40 Because ethnic data is not always readily available, this report includes an eGFR for both -Americans and non- Americans. The National Kidney Disease Education Program (NKDEP) does not endorse the use of the MDRD equation for patients that are not between the ages of 18 and 70, are , have extremes of body size, muscle mass, or nutritional status, or are non- or non-. According to the National Kidney Foundation, irrespective of diagnosis, the stage of the disease is based on the level of kidney function: Stage Description GFR(mL/min/1.73 m(2)) 1 Kidney damage with normal or decreased GFR 90 2 Kidney damage with mild decrease in GFR 60-89 3 Moderate decrease in GFR 30-59 4 Severe decrease in GFR 15-29 5 Kidney failure <15 (or dialysis) 41 CHOLESTEROL INTERPRETATION: Desirable: Less than 200 MG/DL Borderline-High Risk: 200-239 MG/DL High-Risk: 240 MG/DL and over 42 HDL INTERPRETATION: Undesirable: High Risk: Less than 40 MG/DL Desirable: Low Risk: Greater than 60 MG/DL 43 LDL INTERPRETATION: Low Risk Optimal Level: LDL Less than 100 MG/DL Near or Above Optimal: LDL 100-129 MG/DL Borderline High Risk: LDL 130-159 MG/DL High Risk: LDL 160-189 MG/DL Very High Risk: LDL Greater than 189 MG/DL 44 THERAPEUTIC TARGET FOR THE TREATMENT OF DIABETES MELLITUS PATIENTS IS <7% HBA1C, AND IN SELECTIVE PATIENTS <6.0%. PLEASE REFER TO [place] [employer] DIABETIC CARE GUIDELINES FOR FURTHER INFORMATION. 45 Anion gap measurement may be of limited value in the presence of any alkalosis, especially in a combined acid base disorder. . 46 A metabolite of Naproxen, O-desmethylnaproxen, has been shown to interfere with the Jendrassik-[place] method for measuring total bilirubin. Samples from patients who have taken Naproxen have shown spurious elevation in total bilirubin levels. 47 Because ethnic data is not always readily available, this report includes an eGFR for both -Americans and non- Americans. The National Kidney Disease Education Program (NKDEP) does not endorse the use of the MDRD equation for patients that are not between the ages of 18 and 70, are , have extremes of body size, muscle mass, or nutritional status, or are non- or non-. According to the National Kidney Foundation, irrespective of diagnosis, the stage of the disease is based on the level of kidney function: Stage Description GFR(mL/min/1.73 m(2)) 1 Kidney damage with normal or decreased GFR 90 2 Kidney damage with mild decrease in GFR 60-89 3 Moderate decrease in GFR 30-59 4 Severe decrease in GFR 15-29 5 Kidney failure <15 (or dialysis) 48 CHOLESTEROL INTERPRETATION: Desirable: Less than 200 MG/DL Borderline-High Risk: 200-239 MG/DL High-Risk: 240 MG/DL and over 49 HDL INTERPRETATION: Undesirable: High Risk: Less than 40 MG/DL Desirable: Low Risk: Greater than 60 MG/DL 50 LDL INTERPRETATION: Low Risk Optimal Level: LDL Less than 100 MG/DL Near or Above Optimal: LDL 100-129 MG/DL Borderline High Risk: LDL 130-159 MG/DL High Risk: LDL 160-189 MG/DL Very High Risk: LDL Greater than 189 MG/DL 51 Anion gap measurement may be of limited value in the presence of any alkalosis, especially in a combined acid base disorder. . 52 Because ethnic data is not always readily available, this report includes an eGFR for both -Americans and non- Americans. The National Kidney Disease Education Program (NKDEP) does not endorse the use of the MDRD equation for patients that are not between the ages of 18 and 70, are , have extremes of body size, muscle mass, or nutritional status, or are non- or non-. According to the National Kidney Foundation, irrespective of diagnosis, the stage of the disease is based on the level of kidney function: Stage Description GFR(mL/min/1.73 m(2)) 1 Kidney damage with normal or decreased GFR 90 2 Kidney damage with mild decrease in GFR 60-89 3 Moderate decrease in GFR 30-59 4 Severe decrease in GFR 15-29 5 Kidney failure <15 (or dialysis) Procedures Date CPT Code Description Status 12/28/2017 78364 Inject/Drain Joint/Bursa Major W/O US Completed 04/20/2017 13767 EKG Tracing & Interpretation Completed 03/17/2017 55938 Color Flow Doppler/Interp & Reprt Completed 03/17/2017 30032 Pulse Wave/Continuous-Interp.RPT Completed 03/17/2017 21079 Echocardiography, Transesophageal, Real Time W/Image 2D Completed W/W/O M-M 12/28/2016 54879 ECHO Stress Test Incl Perf Contiuous ekg Monitoring Completed W/Phys Superv 12/14/2016 89646 Admin & Interp Of Health Risk Assessment w/ Patient Completed 11/17/2016 09047 ECHO Transthoracic, Real-Time 2D With Doppler And Color Completed Flow 05/10/2016 47068 Echocardiogram, Limited Study Completed 04/29/2016 36446 EKG Tracing & Interpretation Completed 05/06/2015 Colonoscopy Completed 04/29/2015 83871 EKG Tracing & Interpretation Completed 04/15/2015 18865 ECHO Transthoracic, Real-Time 2D With Doppler And Color Completed Flow 11/22/2013 08273 Carotid Doppler,Bilateral Completed 11/14/2013 64593 EKG Tracing & Interpretation Completed 11/06/2013 91498 ECHO Transthoracic, Real-Time 2D With Doppler And Color Completed Flow 11/21/2012 31168 Stress Test Completed 11/07/2012 31233 EKG Tracing & Interpretation Completed 10/26/2012 94848 ECHO Transthoracic, Real-Time 2D With Doppler And Color Completed Flow 05/05/2009 14999 EKG Tracing & Interpretation Completed Encounters Type Date Location Provider CPT E/M Dx Office Visit 01/23/2018 [facility] Sant[facility] M.D. 46905 S83.222D 9:30a [facility] [place] Office Visit 12/28/2017 [facility] M.D. 28442 M25.562 10:15a [facility] M25.462 S83.222D Office Visit 12/14/2017 2:00p [facility] M.D. 56095 M25.562 C.M.AIzabela M25.462 S83.222A Office Visit 07/22/2017 9:45a [facility] Tyler Shay 94569 S86.011D Of Madeleine Damian Office Visit 05/26/2017 11:00a [facility] Shay, 06162 S86.011D Of CBrittney Damian Office Visit 05/12/2017 3:20p [facility] Nancy Bedoya 04217 R19.7 Medicine - Shivani Damian E78.5 Office Visit 05/02/2017 9:40a [facility] Narcisa Azevedo N.Reva 42205 R19.7 - [place] K21.9 Office Visit 04/20/2017 1:30p [facility] Jyoti Beckford M.D. 81892 G45.4 [facility] Z95.2 Q21.1 I10 Office Visit 03/24/2017 8:30a [facility] Shay, 17046 S86.011A Of Madeleine Damian Office Visit 03/07/2017 11:40a [facility] Nancy Bedoya 76682 G45.4 Medicine - Shivani Damian M76.61 Office Visit 12/14/2016 9:20a [facility] Nancy Bedoya 84978 Z00.00 - [place] MJacob Office Visit 04/29/2016 3:45p [facility] Jyoti Beckford M.D. 86900 Z95.2 [facility] E78.2 I10 I71.2 M54.5 Office Visit 04/08/2016 10:20a [facility] Medicine Nancy Bedoya 47504 M54.31 - [place] M.DIzabela Office Visit 12/23/2015 9:00a [facility] Nancy Bedoya 40491 M54.31 - [place] M.DIzabela Office Visit 12/10/2015 9:00a [facility] Nancy Bedoya 29873 Z00.00 - [place] Nati E78.5 I10 K21.9 Office Visit 10/15/2015 2:20p [facility] [place] [address] B02.9 [place] Office Visit 04/29/2015 8:30a [facility] Jyoti Beckford M.D. 97700 Z95.2 I35.0 I10 E78.5 I71.2 Office Visit 11/13/2014 4:00p [facility] Medicine - Douglas Vaz, DISABILITY HEARING OFFICER 96093 461.8 [place] 461.1 Office Visit 11/01/2014 2:20p [facility] Narcisa Azevedo, N.P. 07540 465.9 - [place] 487.1 Office Visit 09/12/2014 4:00p [facility] Nancy Bedoya 74323 V70.0 - Shivani Damian 530.81 Office Visit 11/14/2013 9:15a [facility] Jyoti Beckford M.D. 76766 424.1 [facility] V43.3 443.9 401.1 447.71 Office Visit 09/10/2013 9:00a [facility] Nancy Bedoya 96623 V70.0 - Shivani Damian 424.1 401.1 272.4 530.81 Office Visit 03/27/2013 4:00p [facility] Nancy Bedoya 74729 724.2 - [place] Nati Office Visit 03/16/2013 3:40p [facility] Nancy Bedoya 64423 724.2 - [place] Nati Office Visit 03/12/2013 2:20p [facility] Nancy Bedoya 73883 724.2 - [place] Nati Office Visit 12/21/2012 9:00a [facility] [place] [address] 401.9 [facility] 780.4 Office Visit 12/05/2012 9:00a [facility] [place] [address] 401.9 780.4 Office Visit 11/07/2012 8:45a [facility] Jyoti Beckford M.D. 35401 424.1 [facility] 786.50 401.9 278.00 Office Visit 09/07/2012 9:00a [facility] Nancy Bedoya 85018 V70.0 - Shivani Damian 401.1 272.4 V06.1 706.2 530.81 Office Visit 05/15/2012 1:00p [facility] Narcisa Azevedo, N.P. 45062 724.5 - [place] Office Visit 02/03/2012 1:00p [facility] Nancy Cotton, 48254 780.4 - [place] M.D. 785.9 Office Visit 05/28/2011 10:00a DO Not Use Nancy Cotton, 12456 401.1 [facility] M.D. 272.4 V43.3 790.21 Office Visit 08/05/2010 11:15a DO Not Use Narcisa Varn, N.P. 52841 682.6 [facility] Office Visit 03/19/2010 9:30a DO Not Use Nancy Cotton, 93466 272.4 [facility] M.D. 401.1 530.81 553.8 Office Visit 11/19/2009 1:15p DO Not Use Narcisa Varn, 73175 478.19 [facility] N.P. Office Visit 11/10/2009 10:30a DO Not Use RadomsMeera higginsa, 73640 272.4 [facility] M.D. 401.1 V43.3 Office Visit 10/17/2009 11:30a DO Not Use [facility] Narcisa Varn, 63893 382.9 N.P. 461.9 466.0 Office Visit 08/11/2009 9:15a DO Not Use RadMeera fortunea, 11384 461.9 [facility] M.D. 466.0 V04.81 Office Visit 05/05/2009 8:45a DO Not Use RadMeera fortunea, 71162 V70.0 [facility] M.D. 401.1 V04.81 Office Visit 10/28/2008 9:30a DO Not Use Radtong Jannet, 13498 785.6 [facility] M.D. 272.4 401.1 285.9 Office Visit 10/13/2007 2:15p DO Not Use Narcisa Varn, 12577 388.30 [facility] N.P. Office Visit 08/10/2007 11:15a DO Not Use Narcisa Varn, 78599 461.9 [facility] N.P. Office Visit 08/16/2006 1:45p DO Not Use Radomski, Jannet, 24310 461.9 Tyler Damian Office Visit 07/11/2006 3:00p DO Not Use Jannet Servin, 08285 V70.0 Tyler Damian Office Visit 03/16/2006 9:00a DO Not Use Jannet Servin, 07960 285.9 [facility] 272.4 401.1 Plan of Care Future Appointment(s):02/06/2018 10:15 am - [facility] M.D. at [facility]05/01/2018 4:20 pm - Nancy Bedoya M.D. at [facility] Medicine - Sijddrbee46/25/2018 - [facility].S83.222D [facility], [facility], l knee, subsFollow up:Apr 11, 2018 Left knee arthroscopic surgery Office will call about next follow-up Your January appointment can be cancelled. May be active with the left knee as able. Ice and tylenol as needed and your brace
--- NOTE | 2018-02-21 20:20 | ED ---
Syncope/Near Syncope - HPI Summary HPI Summary: 62 y/o male presents to the ED s/p sudden onset 1x episode of syncope with LOC, lasting around 1 minute. Pt's eyes rolled back and had diffuse diaphoresis, per . Pt was sitting down when this episode occurred. Pt received a distressing text from his son, and developed lightheadedness. Associated sx: AHN (still present), nausea. Denies CP, SOB. After the episode the pt c/o mild dizziness and felt "generally not himself". PMHx aortic valve replacement. Last year the pt had an episode of transient global amnesia. This is scribe Ed Sadaf documenting for attending Nicolás Cruz MD - History Of Current Complaint Time Seen by Provider: 02/21/18 20:13 Hx Obtained From: Patient Onset/Duration: Sudden Onset Timing: Intermittent Episode Lasting - 1min Context: Witnessed, Loss Of Consciousness Activity At Onset: At Rest - sitting Aggravating Factor(s): Other - "distressing text from son" Alleviating Factor(s): Nothing Associated Signs And Symptoms: Dizzy, Headache, Lightheadedness, Other - nausea - Allergies/Home Medications Allergies/Adverse Reactions: Allergies Allergy/AdvReac Type Severity Reaction Status Date / Time No Known Allergies Allergy Verified 12/15/17 12:06 PMH/Surg Hx/FS Hx/Imm Hx Previously Healthy: No Endocrine/Hematology History: Denies: Hx Diabetes, Hx Thyroid Disease Cardiovascular History: Reports: Hx Hypertension - MEDICATED, Other Cardiovascular Problems/Disorders Denies: Hx Pacemaker/ICD Respiratory History: Denies: Hx Asthma, Hx Chronic Obstructive Pulmonary Disease (COPD) GI History: Reports: Hx Ulcer - hiatal hernia History: Denies: Hx Renal Disease Musculoskeletal History: Reports: Hx Back Problems - right leg Denies: Hx Scoliosis Sensory History: Reports: Hx Contacts or Glasses Denies: Hx Hearing Aid Opthamlomology History: Reports: Hx Contacts or Glasses Neurological History: Reports: Other Neuro Impairments/Disorders - PAIN CLINIC PT Psychiatric History: Denies: Hx Panic Disorder - Surgical History Surgery Procedure, Year, and Place: aortic valve replacement-MEDTRONIC MOSAIC ULTRA PORCINE- ( card scanned in pacs and other fac op reports) SAFE UP TO 3T ( NO CONDITIONS);. vasectomy;. tonsils; Infectious Disease History: Reports: Hx Shingles - 2016 Denies: Hx Clostridium Difficile, Hx Hepatitis, Hx Human Immunodeficiency Virus (HIV), Hx of Known/Suspected MRSA, Traveled Outside the [place] in Last 30 Days - Social History Alcohol Use: Weekly Alcohol Amount: 1-2 beers daily Substance Use Type: Reports: None Smoking Status (MU): Former Smoker Review of Systems Positive: Skin Diaphoresis Eyes: Negative ENT: Negative Cardiovascular: Negative Respiratory: Negative Positive: Nausea Genitourinary: Negative Musculoskeletal: Negative Skin: Negative Neurological: Other - dizziness, lightheadedness Positive: Headache, Syncope Psychological: Normal All Other Systems Reviewed And Are Negative: Yes Physical Exam - Summary Physical Exam Summary: VITAL SIGNS: Reviewed. GENERAL: Patient is a well-developed and nourished male who is lying comfortable in the stretcher. Patient is not in any acute respiratory distress. HEAD AND FACE: No signs of trauma. No ecchymosis, hematomas or skull depressions. No sinus tenderness. EYES: PERRLA, EOMI x 2, No injected conjunctiva, no nystagmus. EARS: Hearing grossly intact. Ear canals and tympanic membranes are within normal limits. MOUTH: Oropharynx within normal limits. NECK: Supple, trachea is midline, no adenopathy, no JVD, no carotid bruit, no c- spine tenderness, neck with full ROM. CHEST: Symmetric, no tenderness at palpation LUNGS: Clear to auscultation bilaterally. No wheezing or crackles. CVS: Regular rate and rhythm, S1 and S2 present, no murmurs or gallops appreciated. ABDOMEN: Soft, non-tender. No signs of distention. No rebound no guarding, and no masses palpated. Bowel sounds are normal. EXTREMITIES: FROM in all major joints, no edema, no cyanosis or clubbing. NEURO: Alert and oriented x 3. No acute neurological deficits. Speech is normal and follows commands. SKIN: Dry and warm Triage Information Reviewed: Yes Vital Signs Reviewed: Yes Diagnostics - Laboratory Result Diagrams: 02/21/18 20:37 02/21/18 20:37 Lab Statement: Any lab studies that have been ordered have been reviewed, and results considered in the medical decision making process. - Radiology CXR Xray Interpretation: No Acute Changes - No acute intrathoracic disease Radiology Interpretation Completed By: ED Physician - CT BRAIN CT CT Interpretation: No Acute Changes - No acute intracranial abnormality CT Interpretation Completed By: Radiologist - Additional Comments Diagnostic Additional Comments: EKG - 20:33 - SR @ [address] elevations. RBBB. Course/Dx Course Of Treatment: Accepted for admission by Dr. Mcneill @ 21:30. Assessment/Plan: This patient is a 63-year-old male who presents to the emergency department with a chief complaint of a syncopal episode. The patient had a positive loss of consciousness and he was witnessed by the . The time of the syncope was approximately 2 minutes. Patient denies any chest patient is over the palpitations. This results without any significant abnormality except for what was a count of 11.4, slight anemia, and magnesium of 1.8 and troponin of 0.1. Head CT shows no acute interconnected pathology. Chest x-ray impression: No acute cardiopulmonary disease. I discussed with Dr. Holcomb from cardiology and he did not recommend heparin at this time. He recommends aspirin and Lopressor and admission to the hospitalist. The patient is hemodynamically stable. I discussed the case with Dr. Mcneill from the hospitalist service who accepted the patient for admission. - Diagnoses Provider Diagnoses: Chest pain, Elevated troponin - Physician Notifications Discussed Care of Patient With: Miki Holcomb Time Discussed With Above Provider: 21:26 Instructed by Provider To: MD Will See In ED - recommend admission, MD will see pt in the morning Discharge - Sign-Out/Discharge Documenting (check all that apply): Patient Departure - Discharge Plan Condition: Stable Disposition: ADMITTED TO [facility] Referrals: Nancy Bedoya MD [Primary Care Provider] - - Billing Disposition and Condition Condition: STABLE Disposition: Admitted to [facility]
[2018-02-21] MEDS ORDERED: NS 0.9% 1000 ML* 1,000 ML IV ONE (20:23)
[2018-02-21 20:47] LABS: ABS Basophils 0.1 10^3/ul (0-0.2); ABS Eosinophils 0.1 10^3/ul (0-0.6); ABS Lymphocytes 1.6 10^3/ul (1.0-4.8); ABS Monocytes 0.6 10^3/ul (0-0.8); ABS Nucleated RBC 0 10^3/ul; Eosinophil % 0.8 % (0-6); Hematocrit 37 % (42-52); Hemoglobin 12.5 g/dl (14.0-18.0); Mean Corpuscular HGB Conc 34 g/dl (31-36); Mean Corpuscular Hemoglobin 27 pg (27-31); Mean Corpuscular Volume 80 fL (80-94); Mean Platelet Volume 7.7 um3 (7.4-10.4); Nucleated Red Blood Cells % 0; Platelet Count 292 10^3/ul (150-450); Red Blood Count 4.63 10^6/ul (4.00-5.40); Red Cell Distribution Width 15 % (10.5-15); White Blood Count 11.4 10^3/ul (3.5-10.8)
[2018-02-21 21:17] LABS: EGFR Non-African American 84.4 (>60)
[2018-02-21] MEDS ORDERED: Metoprolol Tartrate TAB* 25 MG PO ONE (21:17)
[2018-02-21] MEDS ORDERED: Aspirin 81 mg CHEW TAB* 81 MG TAB.CHEW PO ONE (21:17)
[2018-02-21] MEDS ORDERED: Acetaminophen TAB* 325 MG PO PRN (22:23)
[2018-02-21] MEDS ORDERED: Magnesium Sulfate 2 GM IV* 2 GM/50 ML BAG IVPB ONE (22:23)
[2018-02-21] MEDS ORDERED: Ondansetron INJ* 2 MG/ML VIAL IV PRN (22:23)
[2018-02-21 22:30] LABS: INR 0.92 (0.77-1.02)
[2018-02-21] MEDS ORDERED: NS 0.9% 1000 ML* 1,000 ML IV SCH (22:30)
[2018-02-22] MEDS ORDERED: Magnesium Sulfate IV* 2 GM in NS 0.9% 100 ML* 100 ML IVPB ONE (01:00)
--- NOTE | 2018-02-22 01:52 | HP ---
CC: Dr. Bedoya; Dr. Beckford * HISTORY AND PHYSICAL: DATE OF ADMISSION: 02/21/18 PRIMARY CARE PROVIDER: Dr. Bedoya. PRIMARY SMOKE CONTROL SUPERVISOR: Dr. Beckford. ATTENDING PHYSICIAN WHILE IN THE HOSPITAL: Dr. Da Mcneill * (report dictated by Dmitry Gavin NP) CHIEF COMPLAINT: Syncope. HISTORY OF PRESENT ILLNESS: Mr. Sapp is a 62-year-old male patient. He has a history of hypertension. He also carries a history of aneurysm of the thoracic aorta, history of transient global amnesia, hypertension, peripheral vascular disease, aortic valve disorder, GERD, hyperlipidemia, benign essential hypertension. He is presenting to the ED today. He says that he was outside today working. He was cutting trees. He had not really drank and/or eaten much. He worked pretty throughout the afternoon. He went to sit down at his kitchen table tonight. He received a text message from his son that produced disheartening news. At that point, he felt nauseated. He got really sweaty. He felt anxious. He says that he just felt like he was in a fog. He was having an episode of sudha vu. Next thing, he knew is he woke up into his . She had called 911 and he said he did not want to come in by ambulance. Apparently, he had fainted. He was out for about a minute. He had no chest pain prior to or after, no pressure. He said he had no chest pressure, heaviness, tightness, shortness of breath when he was exerting himself today running a chainsaw and cutting wood. He does state that he has not had any recent long trips or travel with the exception he did go to the [facility] for a 3-hour car ride. He has not been having any calf pain, leg pain, or swelling. No recent surgeries. He denied again any chest pressure. No pressure, heaviness, shortness of breath with exertion. His said that she witnessed the event. She did not notice any myoclonic type jerking. He was out again for about a minute. He initially refused 911, but then after discussion with on-call cardiology group, he was brought into the hospital as it was recommended for him to come. He does state that he has not had any recent change in medications. He did state that he was sitting down when this happened. It did not happen with position change. There was concern because of the syncope. He came into the ED, was evaluated and was noted that he had an elevated troponin. There has been no reports of recent fevers. No reports of recent cough. No vomiting. He did have 1 episode of vomiting last week after eating a large meal, but none since then and there has been no coughing, fevers, or chills. PAST MEDICAL HISTORY: Significant for: 1. Transient global amnesia. 2. Aneurysm of the thoracic aorta. 3. Hypertension. 4. Hyperlipidemia. 5. GERD. 6. Aortic valve disorder. 7. Peripheral vascular disease. 8. Thoracic aorta ectasia. PAST SURGICAL HISTORY: 1. He had an aortic valve replacement, there was tissue. 2. He has had tonsillectomy and vasectomy. HOME MEDICATIONS: Include: 1. Spironolactone 12.5 mg every other day. 2. Hydrochlorothiazide 12.5 mg p.o. every other day. 3. Lisinopril 20 mg daily. 4. Aspirin 81 mg daily. 5. Omeprazole 40 mg daily. 6. Diltiazem 120 mg daily. 7. Lovaza 1 g p.o. daily. ALLERGIES TO MEDICATIONS: Include no known drug allergies. FAMILY HISTORY: Mother had a history of SD. Father had a history of CAD. SOCIAL HISTORY: The patient does not smoke. He does not drink. Surrogate decision maker is his , Stacie. REVIEW OF SYSTEMS: There is no documented fever. He denies having any significant weight change. There is no double vision. He denies having any ear discharge. There has been no rhinorrhea. No sore throat. No thyroid enlargement. There was no chest pain. No shortness of breath, no orthopnea, no nocturnal dyspnea. He did admit to feeling nauseous, diaphoretic; although, he did not vomit tonight. He had no abdominal pain. He had no dysuria, no frequency. There was loss of consciousness. No seizure activity was reported. Review of 14 systems completed, all others negative. PHYSICAL EXAMINATION GENERAL: At this time, Mr. Sapp is a 62-year-old male patient. He is sitting in the ED stretcher. He does not appear to be in any acute distress. He appears to be well nourished, well developed. VITAL SIGNS: Blood pressure 124/91, pulse 66, respirations were 13, O2 sat 98% , temperature 97.6. HEENT: Head is atraumatic, normocephalic. Eyes: EOMs are intact. Sclerae were anicteric and not pale. Throat: Oral mucosa appears to be moist. No oropharyngeal erythema. NECK: Supple. LUNGS: Clear to auscultation bilaterally. No wheezes, rales, or rhonchi. HEART: Sounds S1, S2. He does have a grade 1 systolic murmur heard in the aortic listening area. Regular rate and rhythm. ABDOMEN: Soft, flat, nontender. Bowel sounds were present. EXTREMITIES: Pulses were 2+ throughout. He is able to move all 4 extremities with 5/5 strength. NEUROLOGIC: The patient is awake, alert. He is oriented x3. His tongue is midline. Machinist Linotype were equal. He had gross focal deficits. SKIN: Intact. LABORATORY DATA/DIAGNOSTIC STUDIES: WBC of 11.4, RBC of 4.63, hemoglobin of 12.5, hematocrit was 37, platelet count of 292. Sodium was 139, potassium of 4.1, chloride of 105, bicarb 26, BUN 21, creatinine of 0.91, glucose 110, lactate 1, calcium 9.1, mag 1.8. Total bili 0.2, AST 16, ALT 13, alk phos 56. CK 150, troponin 0.10. He had a TSH that was normal. The patient also did have a brain CT obtained today. Impression: No acute intracranial pathology. He had an EKG obtained today, which showed a normal sinus rhythm with right bundle branch block with rate of 69. No ST elevations or T-wave inversions. According to the EKG reports from Dr. Beckford's office, he has had the right bundle branch block. Last echo I had access to, EF of 55% to 60%. He had mild mitral regurg, trace to mild tricuspid regurg. The aorta was measured at 4.1 cm. He had a positive PFO. He does have known trace AI and the pressure was 13 mmHg. I do not have the full echo report. Old medical records were reviewed. ASSESSMENT AND PLAN: Mr. Sapp is a 62-year-old male patient presenting to the ED today with complaints of syncopal episode. We were asked to evaluate for admission. He will be admitted under observation status for: 1. Syncope. Again, at this point, etiology is unclear. It is concerning that happened when he was sitting down. It could certainly be related to anxiety, it could certainly be related to arrhythmia, possible pulmonary embolism or myocardial infarction. Fortunately, he is not having any chest pain now, he is not short of breath. He is not hypoxic. However, I do think we should cycle his troponins, update his echo, get his circus hand involved in his case. I will check orthostatic blood pressures. We will get the echo tomorrow. We will also get a D- dimer. If this is negative, then I will withhold CTA. If it is positive, I will get a CTA of the chest. He is not having any pain. He says he is feeling well, so for the time being, we will hydrate him and continue to monitor. 2. Hypertension. Continue meds as prescribed with the exception of his diuretics. 3. Elevated troponin. Again, etiology is unclear. He is not having any symptoms now currently. I am going to cycle his troponins. He got an aspirin and beta- chai here in the ED. We will continue to follow. 4. Hyperlipidemia. Continue his current medical regimen. 5. Gastroesophageal reflux disease. Continue PPI therapy. 6. History of thoracic aneurysm. He is not having any chest pain whatsoever. He is not having any symptoms. We will monitor for the time being. 7. Hiatal hernia. Continue his PPI therapy. 8. DVT prophylaxis. I have ordered heparin subcu. 9. Code status. Full code. 10. Fluids, electrolytes, and nutrition. Again, he can have a heart healthy diet. TIME SPENT: Time spent on the admission was 60 minutes, greater than half the time was spent [id number] with the patient obtaining my history and physical, other half time was spent going over the plan of care with the patient and implementing the plan of care. I did discuss the plan of care with my attending , Dr. Mcneill, he is in agreement. DMITRY GAVIN, EPI [id number]/[facility] #: [id number] DIEGO
[2018-02-22 04:36] LABS: Urine Appearance Clear; Urine Blood Negative (Negative); Urine Color Straw; Urine Ketones Negative (Negative); Urine Protein Negative (Negative); Urine Specific Gravity 1.008 (1.010-1.030); Urine Urobilinogen Negative (Negative)
[2018-02-22] MEDS: Heparin VIAL(*) 5000 UNITS/ML VIAL (FIVE THOUSAND) SUBCUT SCH ×2 (06:02→13:47)
[2018-02-22 06:16] LABS: ABS Basophils 0 10^3/ul (0-0.2); ABS Eosinophils 0.1 10^3/ul (0-0.6); ABS Lymphocytes 2.6 10^3/ul (1.0-4.8); ABS Monocytes 0.4 10^3/ul (0-0.8); ABS Neutrophils 3.4 10^3/ul (1.5-7.7); ABS Nucleated RBC 0 10^3/ul; Eosinophil % 1.3 % (0-6); Hematocrit 35 % (42-52); Hemoglobin 12.1 g/dl (14.0-18.0); Lymphocyte % 39.7 % (25-47); Mean Corpuscular HGB Conc 34 g/dl (31-36); Mean Corpuscular Hemoglobin 27 pg (27-31); Mean Corpuscular Volume 80 fL (80-94); Mean Platelet Volume 7.9 um3 (7.4-10.4); Nucleated Red Blood Cells % 0.1; Platelet Count 283 10^3/ul (150-450); Red Blood Count 4.42 10^6/ul (4.00-5.40); Red Cell Distribution Width 15 % (10.5-15); White Blood Count 6.6 10^3/ul (3.5-10.8)
[2018-02-22 06:41] LABS: EGFR Non-African American 87.8 (>60)
[2018-02-22] MEDS ORDERED: Omeprazole CAP* 20 MG PO SCH (07:30)
--- NOTE | 2018-02-22 07:46 | RAD ---
HISTORY: Syncope COMPARISONS: October 12, 2006 VIEWS: 4: Frontal dual-energy and lateral views of the chest. FINDINGS: CARDIOMEDIASTINAL SILHOUETTE: The aorta is tortuous. The cardiomediastinal silhouette is otherwise unremarkable. PADDY: The paddy are normal. PLEURA: The costophrenic angles are sharp. No pleural abnormalities are noted. LUNG PARENCHYMA: The lungs are clear. ABDOMEN: The upper abdomen is clear. There is no subphrenic gas. BONES AND SOFT TISSUES: The patient is status post median sternotomy. OTHER: None. IMPRESSION: NO ACTIVE CARDIOPULMONARY DISEASE. R0
--- NOTE | 2018-02-22 08:08 | RAD ---
INDICATION: Syncope COMPARISON: None TECHNIQUE: Noncontrast axial source images were acquired from the skull base to the vertex. FINDINGS: Ventricles/sulci: The ventricles and cisterns are normal in size and configuration for age. Brain parenchyma: There is no focal parenchymal finding, evidence of intracranial mass, or intracranial mass effect. Intracranial hemorrhage:None. Extra-axial spaces: There are no abnormal extra axial fluid collections or evidence of extra-axial mass. Calvarium: There is no calvarial fracture or other calvarial abnormality. Scalp: There is no evidence of scalp or extracalvarial soft tissue abnormality. Paranasal sinuses/mastoid: The paranasal sinuses and mastoid air cells are clear. Other: None. IMPRESSION: NEGATIVE EXAMINATION
[2018-02-22] MEDS ORDERED: Diltiazem CD CAP* 120 MG PO SCH (09:00)
[2018-02-22] MEDS ORDERED: Lisinopril TAB* 10 MG PO SCH (09:00)
[2018-02-22] MEDS ORDERED: Aspirin EC TAB* 81 MG TAB.EC PO SCH (09:00)
--- NOTE | 2018-02-22 11:44 | ECHO ---
Patient: REGINE BLACK [place] Rec#: [id number] : 1955 Date: 02/22/2018 Age: 62y Height: 175.26 cm / 69.0 in Weight: 87.54 kg / 192.9 lbs Sex: M BSA: 2.03 Room#: 438 Admit Date#: 02/21/2018 Type: Inpatient Referring: Dmitry Gavin NP Reading: Jyoti Beckford MD Occ Med Physician: Priscilla Sheffield RDCS CC: Nancy Bedoya MD Transthoracic Echocardiogram Indication: Syncope BP: 119/83 HR: 70 Rhythm: NSR Findings History: HTN,thoracic aortic aneurysm,amnesia,PVD,s/p Ao valve replacement with tissue valve( Medtronic Mosaic porcine #[id number]),GERD,HLD. Technical Comments: The study quality is good. Completed at 1025. Left Ventricle: The left ventricular chamber size is normal. Septal wall hypertrophy is observed. Global left ventricular wall motion and contractility are within normal limits. The estimated ejection fraction is 55-60%. Post surgical hypokinesis of the interventricular septum is observed consistent with valve replacement. Abnormal left ventricular diastolic function is observed. Left Atrium: The left atrial chamber size is normal. Right Ventricle: The right ventricular cavity size is normal. The right ventricular global systolic function is normal. Right Atrium: The right atrial cavity size is normal. Aortic Valve: The highest aortic valve velocity was obtained with the standard probe from the A5C view. A porcine bio-prosthetic aortic valve is present. The prosthetic aortic valve leaflets are normal. The bio-prosthetic aortic valve appears to be functioning normally. Mitral Valve: The mitral valve leaflets are moderately thickened. There is mild to moderate mitral regurgitation. There is no evidence of mitral stenosis. Tricuspid Valve: The tricuspid valve leaflets are normal. There is mild to moderate tricuspid regurgitation. The right ventricular systolic pressure is estimated at 35 mmHg. There is evidence of borderline pulmonary hypertension. There is no tricuspid stenosis. Pulmonic Valve: The pulmonic valve appears normal. There is trace to mild pulmonic regurgitation. There is no pulmonic stenosis. Pericardium: The pericardium appears normal. Aorta: There is mild dilatation of the ascending aorta. There is no dilatation of the aortic arch. There is no dilation of the aortic root. Pulmonary Artery: The main pulmonary artery appears normal. Venous: The venous system is not well visualized. Conclusions The left ventricular chamber size is normal. Global left ventricular wall motion and contractility are within normal limits. The estimated ejection fraction is 55-60%. Abnormal left ventricular diastolic function is observed. The right ventricular global systolic function is normal. A porcine bio-prosthetic aortic valve is present. The bio-prosthetic aortic valve appears to be functioning normally. There is mild to moderate mitral regurgitation. There is mild to moderate tricuspid regurgitation. The right ventricular systolic pressure is estimated at 35 mmHg. There is mild dilatation of the ascending aorta: 3.9 cm. Compared with prior PAN of 03/17/17, LVH has improved further, prior MR was mild, prior TR was trace/mild, aorta diameter was 4.1 cm. PFO noted on PAN. Measurements Name Value Normal Range RVIDd (AP) 2D 3.3 cm (0.9 - 2.6) RVDdMajor (2D) 3.4 cm (2.2 - 4.4) RAd ISD 4CH 4.7 cm (3.4 - 4.9) RA (A4C)W 3.8 cm (2.9 - 4.6) IVSd (2D) 1.1 cm (0.6 - 1) LVPWd (2D) 0.8 cm (0.6 - 1) LVIDd (2D) 5.2 cm (3.6 - 5.4) LVIDs (2D) 3.5 cm - LV FS (2D) 33 % (25 - 45) Aortic Annulus 2.3 cm (1.4 - 2.6) Ao root diameter (2D) 3.1 cm (2.1 - 3.5) Ascending Ao 3.9 cm (2.1 - 3.4) Aortic arch 2.5 cm (1.8 - 3.4) Descending Ao 0.8 cm - LA dimension (AP) 2D 3.8 cm (2.3 - 3.8) LAd ISD 4CH 5.1 cm (2.9 - 5.3) LA ISD 4CH W 3.9 cm (2.5 - 4.5) Name Value Normal Range LA ESV SP 4CH (A/L) 52 ml - LA ESV SP 2CH (A/L) 41 ml - LA ESV BP (A/L) 49 ml - LA ESV BP (A/L) index 23.85 ml/m2 - LA ESV SP 4CH (MOD) 46 ml - LA ESV SP 2CH (MOD) 39 ml - Name Value Normal Range MV E-wave Vmax 1 m/sec - MV deceleration time 265 msec - MV A-wave Vmax 1.8 m/sec - MV E:A ratio 0.82 ratio - LV septal e' Vmax 0.06 m/sec - LV lateral e' Vmax 0.07 m/sec - LV E:e' septal ratio 16.67 ratio - LV E:e' lateral ratio 14.28 ratio - Name Value Normal Range AV Vmax 2.8 m/sec - AV VTI 66.4 cm - AV peak gradient 31.61 mmHg - AV mean gradient 17.67 mmHg - LVOT diameter 2.2 cm - LVOT Vmax 0.9 m/sec - LVOT VTI 23.4 cm - LVOT peak gradient 3.33 mmHg - LVOT mean gradient 2.13 mmHg - MACY (continuity Vmax) 1.2 cm2 - MACY (continuity VTI) 1.3 cm2 - Name Value Normal Range MR Vmax 5.9 m/sec - MR VTI 209 cm - Name Value Normal Range TR Vmax 2.6 m/sec - TR peak gradient 27 mmHg - RAP 8 mmHg - RVSP 35 mmHg - Name Value Normal Range PV Vmax 0.9 m/sec - PV peak gradient 3.21 mmHg -
[2018-02-22 12:02] VITALS: BP 143/89
--- NOTE | 2018-02-23 03:50 | CONS ---
CC: Dr. Nancy Bedoya; Hospitalist Service * CARDIOLOGY CONSULTATION: DATE OF CONSULT: 02/22/18 REASON FOR CONSULTATION: Syncope. CHIEF COMPLAINT: Loss of consciousness. HISTORY OF PRESENT ILLNESS: Mr. Sapp was examined in the presence of his and some friends. The patient was in his usual state of health yesterday. Even though it was raining, he cut a lot of wood, felt great, admits he may have been a little dehydrated after cutting the wood for several hours, he laid down, took a nap, had 8 ounces of fluid or water, then got up, was sitting and had a text from one of his sons that was very stressful. He then felt very anxious, very sweaty , and he said he was sweating profusely which his confirmed and he felt nauseated. His then said his eyes rolled back and he basically laid back in the chair and lost consciousness. She estimates he was out about a minute. When he awoke, he recovered pretty quickly, but it took some time for the diaphoresis to clear. The patient's called the ambulance, took on his initial blood pressures, she reports it was 118 systolic. The patient, again, reiterated that he had felt great prior to this event. He admits he lost consciousness giving blood to the point where he says they do not want him to give blood. The patient denies any chest pain, pressure, heaviness, orthopnea, PND, or recent change in exercise ability. PAST MEDICAL HISTORY: 1. Bicuspid aortic valve, status post aortic valve replacement (tissue) 2006. 2. Hypertension. 3. Thoracic aortic aneurysm. 4. Mixed dyslipidemia. 5. Reflux. 6. Hiatal hernia. 7. Erosive esophagitis. 8. Benign positional vertigo, 2011. 9. Herniated lumbar disk, L5, 2016. 10. Dysplastic nevi. 11. Mitral insufficiency. 12. Patent foramen ovale (seen on PAN in March 2017). PAST SURGICAL HISTORY: Includes aortic valve replacement, 2006 (#27 Medtronic Mosaic porcine valve). MEDICATIONS: The patient's outpatient medications include: 1. Diltiazem ER 120 mg a day. 2. Lisinopril 20 mg a day. 3. Hydrochlorothiazide 12.5 mg every other day alternating with. 4. Aldactone 12.5 mg a day. 5. Lovaza 2 g a day. 6. Vitamin B12. 7. Aspirin 81 mg a day. ALLERGIES: The patient has no known medication allergies. FAMILY HISTORY: Significant in that his father had a history of coronary artery disease with bypass surgery, age 68. His mother of a stroke at age 75. He has a sister with migraines. SOCIAL HISTORY: The patient lives with his supportive . 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. The patient is a distant smoker, quit in 1980. Drinks an alcoholic beverage a day and a cup of decaf coffee a day and is regularly active. REVIEW OF SYSTEMS: As above. No recent dizziness, exertional symptoms. No chest pain, pressure, heaviness, palpitations, racing of the heart. No recent fevers, chills, sweats. No recent travel. No recent change in medications. All other review of systems was negative. The patient denies any back pain as well. PHYSICAL EXAM: On exam, the patient is 5 feet 9 inches, weighs 192 pounds with a BMI of 28. Vital signs on admission, blood pressure 124/91, pulse was 69, respiratory rate 16 to 21, oxygen saturation 98 to 99% on room air. Orthostatic blood pressures done this morning showed blood pressure 119/83 sitting with pulse of 61, blood pressure 127/90 with the patient is lying, blood pressure 127/90 with pulse of 63 sitting, blood pressure standing was 135/ 92 with pulse of 70. General appearance: Centripetally somewhat overweight, but fit-appearing stocky older middle-aged gentleman lying at 30 degrees, in no acute distress. Psychologically, pleasant and cooperative. Neurologically, awake, alert and oriented to person, place and time. Cranial nerves II through XII intact. Grossly normal sensory and motor function in the upper and lower extremities. Gait not checked. Skin: Warm, dry. Age-appropriate changes. No cyanosis or rashes. HEENT: Pupils are equal and round. Mucous membranes moist. Neck without increased JVP appreciated. Good carotid pulses without audible bruits. Breath sounds are clear with good effort. No wheezes, rales or rhonchi. Coronary: S1, S2 regular. Soft, early peaking systolic murmur in the right upper sternal border. No rubs. Abdomen: Active bowel sounds. Soft , nontender. No epigastric discomfort. No hepatomegaly. Lower extremities are free of edema with symmetrical and strong dorsalis pedal pulses. DIAGNOSTIC STUDIES/LAB DATA: A 12-lead ECG on 02/21/18, in the emergency department showed normal sinus rhythm with right bundle-branch block, 70 beats a minute, QRS axis -30, normal AV conduction times and normal ST segments. Brain CT from 02/21/18 was negative. Chest x-ray from 02/21/18 showed no active pulmonary disease, tortuous aorta. Transthoracic echocardiogram showed normal left ventricular wall motion and systolic function with an ejection fraction of 55 to 60% with abnormal diastolic filling, normal right ventricular systolic function, bioprosthetic aortic valve with good function, mild to moderate mitral insufficiency, mild to moderate tricuspid insufficiency, PA pressure of 35 mmHg and ascending aorta measured 3.9 cm. White count initially 11.4, today is 6.6, hemoglobin 12.1, hematocrit 35, platelets 283. INR is 0.92. PTT 28. D-dimer 226. Sodium 141, potassium 4.1, chloride 109, bicarb 28. BUN 15, creatinine 0.88. Glucose 101. Magnesium 1.8 on arrival. Troponin number 1, 0.10; troponin number 2, 0.08; troponin number 3 , 0.08. TSH 2.87. IMPRESSION AND RECOMMENDATIONS: In summary, Mr. Sapp is a 62-year-old gentleman admitted with a syncopal episode that occurred in the setting of extreme anxiety and he has a history of vagal-like syncope giving blood in the distant past. I think this event is most consistent with neurocardiogenic/vagally mediated syncope, there could be contributions of relative dehydration from medications and activity. The elevated troponins are noted. His cardiac catheterization in 2005 showed normal coronaries. Although he does have atherosclerotic risk, I think the elevated troponins are more likely related to global hypoperfusion from bradycardia and hypotension when significant atherosclerotic heart disease as he has had been very active up until this event. After discussion with the patient, he very much wants to go home, but I did recommend a stress test and avoiding excessive activity until this was done and we will plan an outpatient stress test, exercise Myoview. This will additionally give us the opportunity to look at blood pressure response to exercise and heart rate response on his current medication regimen. The patient does have a history of dilatation of the thoracic aneurysm and dissection could potentially present with syncope. His echocardiogram did not show evidence of dissection in the ascending aorta. He does not have pain and chest x- ray was not felt to be remarkable. CAT scan with contrast would be prudent just to ensure there is no aortic process that might have contributed to this presentation. He will follow up with me as an outpatient, considerations about stopping the diuretic should be made to minimize the risk of recurrent events. It is possible that tachyarrhythmias as opposed to bradyarrhythmias could have contributed, but the telemetry unit here did not show evidence of any abnormal dysrhythmias. I am not sure an event monitor would be or Holter monitor would be pragmatic but if there is any recurrent dizzy spells or suggestion of tachy or bradyarrhythmias on event monitor, either external or implantable could be considered in the future. Thank you for allowing me to assist in this nice gentleman's care. [id number]/[facility] #: [id number] DIEGO
--- NOTE | 2018-02-23 12:20 | DS ---
CC: Dr. Bedoya; Dr. Beckford DISCHARGE SUMMARY: DATE OF ADMISSION: 02/21/18. DATE OF DISCHARGE: 02/22/18. PRIMARY CARE PROVIDER: Dr. Bedoya. SENIOR WEB DESIGNER: Dr. Beckford. DISCHARGE DIAGNOSES: 1. Syncope. 2. Mild troponin elevation. SECONDARY DIAGNOSES: 1. Transient global amnesia. 2. Thoracic aorta aneurysm. 3. Status post aortic valve replacement (porcine). 4. Hypertension. 5. Hyperlipidemia. 6. Gastroesophageal reflux disease. 7. Peripheral vascular disease. 8. Status post tonsillectomy. 9. Status post vasectomy. MEDICATION LISTS: Unchanged from admission: 1. Spironolactone 12.5 mg every other day. 2. Hydrochlorothiazide 12.5 mg p.o. every other day. 3. Lisinopril 20 mg p.o. daily. 4. Aspirin 81 mg p.o. daily. 5. Omeprazole 40 mg p.o. daily. 6. Diltiazem 120 mg p.o. daily. 7. Lovaza 1 g p.o. daily. HOSPITAL COURSE: Mr. Sapp is a 62-year-old male with a past medical history as stated above, who presented to the emergency room after a syncopal episode. On the day of admission, the patient was w orking outside, cutting tree limb and he had not drunk a lot of fluid. He describes drinking 8 ounce s of fluid. He finished his work, went to sit down on his kitchen table, and received very upsetting text message from his son. At that point, he felt nauseated, diaphoretic, anxious like "if he was i n a falls." He felt that he needed to put his head between his knees. Otherwise, he was going to pas s out and the next thing he remembered as his calling him. For more details about his presentat ion, I refer to his history and physical. In the emergency room, the patient had an EKG that showed no ischemic changes, but his initial tropon in was 0.1. So, he was admitted to the hospitalist service for further evaluation. His initial EKG showed sinus rhythm at 69 beats per minute with right bundle-branch block with no acute ischemic ann ges. A CT of the brain without contrast was a negative examination. Chest x-ray showed no active cardiopulmonary disease. The patient had no significant arrhythmias while on telemetry and he was asymptomatic throughout the hospital stay. A transthoracic echocardiogram showed that the left ventricular chamber size is normal with global le ft ventricular wall motion and contractility within normal limits. Estimated ejection fraction is 55 % to 60% with abnormal left ventricular diastolic function observed. The right ventricular global sy stolic function is normal. A porcine bioprosthetic aortic valve is present and appears to be functio cathy normally. There is [id number] mitral regurgitation. Mild-to- moderate tricuspid regurgit ation. The right ventricular systolic pressure is estimated at 35 mmHg and there is mild dilatation of the ascending aorta at 3.9 cm. Compared with prior PAN from 2017, LVH has improved. Prior MR was mild. Prior TR was [id number]. Aorta diameter was 4.1 cm and there was a PFO noted on the PAN. The patient was seen in consultation by Dr. Beckford and the impression was that his syncopal episode was likely a combination of dehydration due to the patient's poor fluid intake and worked outside, an d also the stress of the disheartened news that he received from his son. She feels that the patient is medically stable and should be discharged home, as he is asymptomatic. Orthostatic vital signs w ere negative. Regarding his troponin, the fact that his echocardiogram showed no wall motion abnorma lity is reassuring, but she plans to pursue an exercise and Myoview stress test as an outpatient. The patient had no complaints of chest pain, shortness of breath, and his D-dimer was negative. The patient is medically stable to be discharged at this time and will follow up Dr. Beckford as outpa tient. PHYSICAL EXAMINATION: Vital Signs: Temperature 97.6, heart rate is 70, respiratory rate is 16, oxyg en saturation 98% on room air, blood pressure is 143/89. General: The patient is a pleasant gentlem an, sitting up in bed, not in acute distress. CVS: Normal S1, S2. Regular rate and rhythm. Chest: Breath sounds present bilaterally with no added sounds. Neuro: He is alert and oriented x3. Able to move all 4 extremities. DIET: Heart healthy diet. ACTIVITY: As tolerated. DISPOSITION: To home. STATUS WHILE IN HOSPITALIZATION: Observation. Please keep in mind this is a summarized version of this patient's hospital stay. If you need more in formation, please feel free to call me at [phone] or please obtain the full medical records. TIME SPENT: Approximately, 45 minutes were spent to complete this discharge. [id number]/[facility] #: [id number]
== END 2018-02-22 16:42 | disposition home or self-care (01) ==
LOC: ED 19:44 → MEDTELE 22:19
PROVIDERS: ADMIT Hospitalist; ATTEND Internal Medicine
DX: R55 Syncope and collapse (principal); R79.89 Other specified abnormal findings of blood chemistry; G45.4 Transient global amnesia; I71.2 Thoracic aortic aneurysm, without rupture; R07.9 Chest pain, unspecified; Z95.2 Presence of prosthetic heart valve; Z87.891 Personal history of nicotine dependence; I10 Essential (primary) hypertension; E78.5 Hyperlipidemia, unspecified; K21.9 Gastro-esophageal reflux disease without esophagitis; H81.10 Benign paroxysmal vertigo, unspecified ear; I34.0 Nonrheumatic mitral (valve) insufficiency; M51.26 Other intervertebral disc displacement, lumbar region; Z79.82 Long term (current) use of aspirin
CPT/HCPCS: 36415; 70450; 71046; 80048; 80053; 81003; 82550; 83605; 83735; 83880; 84443; 84484; 85025; 85379; 85610; 85730; 93005; 93306; 96365; 99283; A9270-GY; G0378; J1644; J3475

== ENCOUNTER 2018-04-11 06:11 | Day surgery (SDC) | payer OTHER ==
--- NOTE | 2018-03-22 15:17 | HP ---
PREOPERATIVE HISTORY AND PHYSICAL: DATE OF ADMISSION/SURGERY: 04/11/18 DATE OF OFFICE VISIT: 03/15/18 ATTENDING SURGEON: Dr. Gustabo Santoyo.* (DICTATED BY CAROLEE MATIAS) PROCEDURE: Left knee arthroscopic surgery. CHIEF COMPLAINT: Left knee. HISTORY OF PRESENT ILLNESS: Gavin is a 62-year-old male, who presents to the clinic for followup of left knee pain. He continues to have medial knee pain especially with activities like hiking and swimming. He has failed conservative treatment to include aspiration and injection and is therefore agreed to undergo left knee arthroscopic surgery with Dr. Santoyo on 04/11/18. The patient states that he has had a recent history of vasovagal syncopal episode on 02/09/18 for which he was taken to the ER. They did a full workup including lab work, chest x-ray, CT of the head, as well as a nuclear stress test that was found to be negative and probable vasovagal syncope. PAST MEDICAL HISTORY: Hypertension, GERD, biologic aortic valve replacement for treatment of bicuspid aortic valve and aortic stenosis. Denies history of AMI. He did have the recent syncopal episode of 02/09/18 that was possibly vasovagal. PAST SURGICAL HISTORY: Aortic valve replacement in 2006, tonsillectomy and adenoidectomy, vasectomy, several endoscopies, and transesophageal echo. The patient denies prior complications with anesthesia. MEDICATIONS: 1. Diltiazem HCl ER 120 mg 1 by mouth every day. 2. Hydrochlorothiazide 25 mg one-half tab by every other day alternating with spironolactone. 3. Omeprazole 40 mg 1 by mouth daily. 4. Lisinopril 20 mg 1 by mouth daily. 5. Lovaza 1 g take 2 capsules twice a day. 6. Vitamin B12 500 mcg 1 by mouth every day. 7. Aspirin 81 mg 1 by mouth every day. 8. Spironolactone 25 mg one-half tab by mouth every other day. ALLERGIES: No known drug allergies. FAMILY HISTORY: Positive for heart disease and hypertension. Denies family history of DVT or PE. SOCIAL HISTORY: He lives with his spouse. He is a retired licensed professional counselor. He is a former smoker, quit 25 years ago. He drinks 6 alcoholic beverages per week. He denies illegal drug use. He exercises occasionally. REVIEW OF SYSTEMS: A 14-point review of systems was reviewed with the patient. Positive for current complaint, otherwise negative. Denies fever, chills, chest pain, shortness of breath, history of DVT or PE, history of MRSA, history of hep C, history of HIV, and denies history of bleeding disorders. PHYSICAL EXAMINATION GENERAL: A well-developed, well-nourished 62-year-old male, in no acute distress. Alert and oriented x3. Appropriate mood and affect. Appropriate balance and coordination of the lower extremities. VITAL SIGNS: Height 68, weight 192, blood pressure 128/68, respiratory rate 20 , temperature 97.6, BMI 29.2. HEENT: Normocephalic, atraumatic. PERRLA. Throat clear. NECK: Supple. PULMONARY: Lungs are clear to auscultation bilaterally. No wheezing, rhonchi, or rales. CARDIO: Regular rate and rhythm. S1, S2. No murmurs, gallops, or rubs. No edema. ABDOMEN: Positive bowel sounds. Soft, nontender. NEURO: Alert and oriented x3. Cranial nerves grossly intact. Sensation intact to light touch. MUSCULOSKELETAL: Left lower extremity: The skin is intact. No abrasions or open wounds. No warmth or erythema. He does have a mild effusion. Tenderness to palpation over the medial joint line. Antalgic gait favoring the left side. Range of motion 0 to 100. Pain with rotational testing causes medial joint discomfort. Stable to varus and valgus stress. Stable Maritza and posterior drawer. Calf soft, nontender. +2 PT pulse. Sensation intact to light touch distally. DIAGNOSTIC STUDIES: Multiple-view x-rays of the left knee revealed possible medial joint space narrowing, but no evidence of acute fracture or dislocation. An MRI of the left knee revealed a medial meniscus tear with joint effusion as well as an osteochondral defect of the medial femoral condyle with reaction of the bone to the medial femoral condyle. IMPRESSION: Left knee medial meniscus tear. PLAN: The patient is scheduled to undergo a left knee arthroscopic surgery with Dr. Santoyo on 04/11/18. He will follow up 10 to 14 days postop for followup and suture removal. Percocet will be used for postop pain management and aspirin for DVT prophylaxis. CAROLEE MATIAS [id number]/[facility] #: [id number] DIEGO
[~2018-04-11 06:11] MED LIST: Buffered Lidocaine 0.9% SYRIN* 5 ML/SYR SYRINGE INTRADERM ONE
[2018-04-11] MEDS ORDERED: ceFAZolin 1 GM ADVAN(*) 1 GM ADDV.VIAL IVPB ONE (06:57)
[2018-04-11] MEDS ORDERED: ceFAZolin 2 GM in NS 0.9% 100 ml IVPB ONE (07:00)
[2018-04-11] MEDS ORDERED: fentaNYL* 50 MCG/ML 2 ML VIAL (100 MCG VIAL) ONE ×2 (07:09→07:55)
[2018-04-11] MEDS ORDERED: Midazolam* 1 MG/ML 2 ML VIAL (2 MG) ONE (07:09)
[2018-04-11] MEDS ORDERED: ROPIVACAINE 5 MG/ML 30 ML BTL (0.5%) ONE (07:12)
[2018-04-11] MEDS ORDERED: diPHENhydraMINE IV* 50 MG/ML 1 ml VIAL (BENADRYL) IV PRN (07:53)
[2018-04-11] MEDS ORDERED: Naloxone* 0.4 MG/ML 1 ML VIAL IV PRN (07:53)
[2018-04-11] MEDS ORDERED: HYDROcodone/ACETAMIN 5-325 MG* 1 TAB PO PRN ×2 (07:53)
[2018-04-11] MEDS ORDERED: PROCHLORPERAZINE INJ 5 MG/ML 2 ML VIAL IV PRN (07:53)
[2018-04-11] MEDS ORDERED: DiMENhydriNATE IV* 50 MG/ML VIAL IV PUSH PRN (07:53)
[2018-04-11] MEDS ORDERED: Acetaminophen TAB* 325 MG PO PRN (07:53)
[2018-04-11] MEDS ORDERED: Ondansetron INJ* 2 MG/ML VIAL IV PRN (07:53)
[2018-04-11] MEDS ORDERED: fentaNYL* 50 MCG/ML 2 ML VIAL (100 MCG VIAL) IV PRN (07:53)
[2018-04-11] MEDS ORDERED: Nalbuphine* 10 MG/ML 1 ML VIAL IV PRN (07:53)
[2018-04-11] MEDS ORDERED: Lidocaine 2% PF * 5 ML VIAL ONE (07:54)
[2018-04-11] MEDS ORDERED: Mivacurium Chloride* 20 MG/10 ML VIAL IV ONE (07:54)
[2018-04-11] MEDS ORDERED: Dexamethasone IV* 4 MG/ML 1 ML (4 MG) ONE (07:54)
[2018-04-11] MEDS ORDERED: Ketorolac INJ* 30 MG/ML 1 ML VIAL ONE (07:54)
[2018-04-11] MEDS ORDERED: Propofol* 10 MG/ML 20 ML BTL IV PUSH ONE (07:54)
[2018-04-11] MEDS ORDERED: Famotidine IV* 10 MG/ML 2 ML (20 mg) ONE (07:54)
[2018-04-11] MEDS ORDERED: Labetalol IV* 5 MG/ML 20 ML VIAL ONE (07:56)
[2018-04-11] MEDS ORDERED: Lidocain 1% EPI 1:100,000 * 30 ML MDV ONE (08:03)
[2018-04-11] MEDS ORDERED: ceFAZolin 2 GM in NS PREMIX(*) 2 GM/100 ML BAG IVPB ONE (08:12)
[2018-04-11] MEDS ORDERED: HYDROcodone/ACETAMIN 5-325 MG* 1 TAB ONE (09:18)
[2018-04-11 10:20] VITALS: BP 130/84
--- NOTE | 2018-04-11 12:43 | OP ---
CC: Dr. Nancy Bedoya OPERATIVE REPORT: DATE OF OPERATION: 04/11/18 DATE OF : 55 SURGICAL CARE: Left knee arthroscopic surgery. SURGEON: Gustabo Santoyo MD SENIOR ACCOUNTING MANAGER: CAROLEE Montero, television production assistant. The television production assistant was essential for this case for positioning of the knee, holding it open and holding it flexed for the work on the posteromedial femoral condyle. PRE-OP DIAGNOSIS: Left knee medial meniscal tear. POST-OP DIAGNOSES: Left knee medial meniscal tear and anterior synovitis with medial plica and carti serina defect and loss, posterior medial femoral condyle. OPERATIVE PROCEDURE: Left knee arthroscopic surgery with partial medial meniscectomy, chondroplasty of the medial femoral condyle with picking, and anterior synovectomy including the medial plica. INDICATIONS: Persistent left knee pain in an avid hiker. DESCRIPTION OF PROCEDURE: The patient was brought to the operating room and placed on the operating table in a supine position. Following the administration of the anesthetic, the left proximal thigh was wrapped with a tourniquet and the left leg was prepped from the tourniquet to the foot and then d raped free and carefully sealed off in the usual fashion for arthroscopic surgery of the knee. We th en proceeded with our universal protocol time-out confirming Gavin Sapp and the plan for left kne e arthroscopic surgery. We all agreed and we proceeded. The leg, ankle, and foot portion have been sealed off with an impermeable drape with a Vi- Drape wrapped around the top of that on the calf. Th e leg was exsanguinated, the tourniquet elevated to 275. The knee was set up for arthroscopy with e arthroscope lateral to the patellar tendon, probe and operating instruments medial to the patellar tendon, and an inflow catheter superomedial to the patella. The survey of the joint showed that the patellofemoral joint was quite well preserved. There was anterior synovitis with fronds of loose syno vium or fibrin clot and there was a medial plica. The lateral gutter had a little synovitis. The an terior knee had synovitis as well and there was proliferative synovium along the margin of the medial femoral condyle, which was excised. The anterior synovium was excised as well as the ligamentum muc osum. The anterior medial femoral condyle and the medial femoral condyle visualized with the knee in extens ion was normal. The medial femoral condyle had cartilage defect and loss and large flaps with knee f lexion that was 90 degrees and beyond. This area was smoothed with a shaver with chondroplasty and t hen trying to get a firm, stable cartilage at the margins and then Wellington pick was utilized to make some holes in the subchondral bone to encourage the formation of fibrocartilage. Following this, the medial meniscectomy was completed with a shaver and baskets removing the mid and posteromedial menisc us. The medial tibial plateau had fissuring of the cartilage and some loss anteriorly and there were no loose flaps and I did not proceed with any further chondroplasty in this region. The ACL was sat isfactory. The lateral femoral condyle, lateral meniscus, popliteus, lateral tibial plateau, satisfa ctory condition. The patella was in satisfactory condition as well as the trochlea. Once the surgic al care was completed, then final photographs were obtained. The knee was irrigated with another 5 L of saline irrigation solution, then emptied, then instilled with ropivacaine 0.2% mixed with Xylocai ne with epinephrine 15 cc of each. The skin portals were closed with interrupted 3-0 Surgipro and a dressing was applied after washing and drying with Betadine-soaked release, sterile gauze, sterile We bril, cryotherapy cuff, ABD pads, and then a 6-inch Louis bandage loosely applied. The patient was ret urned to the recovery room in stable and satisfactory condition having tolerated the procedure very w yusuf. [id number]/[facility] #: [id number]
== END 2018-04-11 10:22 | disposition home or self-care (01) ==
LOC: OR 06:11
PROVIDERS: ATTEND Orthopaedic Surgery
DX: S83.242A Other tear of medial meniscus, current injury, left knee, initial encounter (principal); M65.862 Other synovitis and tenosynovitis, left lower leg; M67.52 Plica syndrome, left knee; Z95.2 Presence of prosthetic heart valve; I10 Essential (primary) hypertension; K21.9 Gastro-esophageal reflux disease without esophagitis; Z87.891 Personal history of nicotine dependence; X50.9XXA Other and unspecified overexertion or strenuous movements or postures, initial encounter; Y92.9 Unspecified place or not applicable
CPT/HCPCS: 88304; J0690; J1100; J1885; J2250; J2704; J2795; J3010

== ENCOUNTER 2023-05-06 10:03 | Observation (INO) ==
[2023-05-06 11:32] LABS: ABS Lymphocytes 1.4 10^3/uL (1.0-4.8); ABS Monocytes 0.4 10^3/uL (0.0-1.1); ABS Neutrophils 4.9 10^3/uL (1.5-7.6); ABS Nucleated RBC 0.01 10^3/ul; Eosinophil % 0.6 %; Hematocrit 38.4 % (38-53); Hemoglobin 13.3 g/dL (13.2-16.3); Lymphocyte % 20.8 %; Mean Corpuscular Hemoglobin 27.6 pg (27-33); Mean Corpuscular Hgb Conc 34.6 g/dL (31-36); Mean Corpuscular Volume 79.7 fL (80-97); Mean Platelet Volume 7.9 fL (7.5-11.2); Nucleated Red Blood Cells % 0.1 /100 WBC (0.0-0.4); Platelet Count 260 10^3/uL (150-450); Red Blood Count 4.82 10^6/uL (4.06-5.63); Red Cell Distribution Width 14.8 % (12-17); White Blood Count 6.7 10^3/uL (3.6-10.2)
[2023-05-06 11:54] LABS: Albumin 4.3 g/dL (3.2-5.2); Albumin/Globulin Ratio 1.8 (1-3); Calcium 9.8 mg/dL (8.6-10.3); Creatinine, Serum 0.91 mg/dL (0.67-1.17); Globulin 2.4 g/dL (2-4); Potassium 3.6 mmol/L (3.5-5.0); Total Bilirubin 0.4 mg/dL (0.2-1.0); Total Protein 6.7 g/dL (6.4-8.9); eGFR CKD-EPI 91.8 (>60)
[2023-05-06] MEDS ORDERED: Iohexol 350 (CONTRAST) 500 ML MDV IV ONE (12:44)
[2023-05-06 12:58] LABS: High Sensitivity Troponin 1 Hr 3 pg/mL (<20)
[2023-05-06] MEDS ORDERED: Ondansetron 4 mg VIAL 2 MG/ML 2 ml VIAL IV ONE (14:21)
[2023-05-06] MEDS ORDERED: Enoxaparin 40 MG/0.4 ML SYR SUBCUT SCH (16:00)
[2023-05-06] MEDS: NS 0.9% 1000 ml BAG 1,000 ML IV SCH ×2 (16:55→18:07)
[2023-05-06] MEDS: KCL 20 MEQ/100 ML IVPREMIX 20 MEQ/100 ML BAG IV SCH ×2 (17:03→21:01)
[2023-05-06] MEDS ORDERED: Prochlorperazine 5 mg/ml 2 ml VIAL (10 mg) IV PRN (17:28)
[2023-05-06 17:43] LABS: Phosphorus 1.3 mg/dL (2.5-5.0)
[2023-05-06] MEDS ORDERED: ceFAZolin 2 GM in NS PREMIX 2 GM/100 ML BAG IVPB ONE (17:45)
[2023-05-06] MEDS ORDERED: Potassium Phosphate IV 15 MMOL in NS 0.9% 250 ml 250 ML IVPB ONE (18:34)
[2023-05-06] MEDS ORDERED: Midazolam 5 mg/5 ml VIAL 1 mg/ml 5 ml VIAL (5 mg) ONE (19:45)
[2023-05-06] MEDS ORDERED: Lidocaine 1% VIAL 10 MG/ML 30 ML VIAL ONE ×2 (19:45→20:11)
[2023-05-06] MEDS ORDERED: Iohexol 300 (CONTRAST) 10 ML SDV ONE (19:45)
[2023-05-06] MEDS ORDERED: fentaNYL 100 mcg/2 ml 50 MCG/ML VIAL ONE (19:45)
[2023-05-06] MEDS ORDERED: Midazolam 10 mg/10 ml VIAL 1 mg/ml 10 ml VIAL (10 mg) IV SLOW PU ONE (21:25)
[2023-05-06] MEDS ORDERED: fentaNYL 100 mcg/2 ml 50 MCG/ML VIAL IV SLOW PU ONE (21:25)
[2023-05-07] MEDS: ceFAZolin 1 GM ADVAN 1 GM in NS 0.9% 50 ML 50 ML IVPB SCH ×2 (04:27→11:03)
[2023-05-07 04:32] LABS: ABS Lymphocytes 2.3 10^3/uL (1.0-4.8); ABS Monocytes 0.5 10^3/uL (0.0-1.1); ABS Neutrophils 5.5 10^3/uL (1.5-7.6); ABS Nucleated RBC 0.02 10^3/ul; Eosinophil % 0.4 %; Hematocrit 37.9 % (38-53); Lymphocyte % 27.7 %; Mean Corpuscular Hemoglobin 27.6 pg (27-33); Mean Corpuscular Hgb Conc 34.3 g/dL (31-36); Mean Corpuscular Volume 80.3 fL (80-97); Mean Platelet Volume 7.7 fL (7.5-11.2); Nucleated Red Blood Cells % 0.2 /100 WBC (0.0-0.4); Platelet Count 263 10^3/uL (150-450); Red Blood Count 4.72 10^6/uL (4.06-5.63); White Blood Count 8.4 10^3/uL (3.6-10.2)
[2023-05-07 04:48] LABS: Calcium 8.4 mg/dL (8.6-10.3); Creatinine, Serum 0.91 mg/dL (0.67-1.17); Phosphorus 3.4 mg/dL (2.5-5.0); Potassium 3.5 mmol/L (3.5-5.0); eGFR CKD-EPI 91.8 (>60)
[2023-05-07] MEDS ORDERED: Potassium Chlor 20 meq TAB.ER PO ONE (07:27)
[2023-05-07] MEDS ORDERED: Aspirin EC 81 mg TAB.EC (enteric coated) PO SCH (09:00)
[2023-05-07 13:56] VITALS: BP 128/85
== END 2023-05-07 13:15 | disposition home or self-care (01) ==
LOC: EDHOLD 10:03 → ED 10:03 → ICU 17:27
PROVIDERS: ADMIT Internal Medicine; ATTEND Internal Medicine